=== PATIENT | male | born 1965 | race Caucasian/White ===

== ENCOUNTER 2023-07-25 14:56 | Outpatient (CLI) | payer MEDICARE, SELFPAY | END 2023-07-25 14:57 | disposition home or self-care (01) | LOC: KYNREF 15:08 | PROVIDERS: PCP Nurse Practitioner Family; Visit Provider Nurse Practitioner Family | DX: I10 Essential (primary) hypertension (principal); E11.69 Type 2 diabetes mellitus with other specified complication; Z79.4 Long term (current) use of insulin | CPT/HCPCS: 84132 ==

== ENCOUNTER 2024-03-19 10:10 | Outpatient (CLI) | payer MEDICARE, SELFPAY | END 2024-03-19 10:11 | disposition home or self-care (01) | PROVIDERS: PCP Nurse Practitioner Family; Visit Provider Nurse Practitioner Family | DX: I10 Essential (primary) hypertension (principal); Z13.220 Encounter for screening for lipoid disorders; Z12.5 Encounter for screening for malignant neoplasm of prostate; Z13.29 Encounter for screening for other suspected endocrine disorder; Z13.21 Encounter for screening for nutritional disorder | CPT/HCPCS: 80053; 80061; 82043; 82570; 82607; 84443; G0103 ==

== ENCOUNTER 2025-01-01 13:51 | Outpatient (CLI) | payer MEDICARE, SELFPAY ==
--- NOTE | 2025-01-08 08:22 | W.PM.SLEEP ---
Sleep Study Details Details Interpreting Provider: Marley Date of Sleep Study: 01/01/25 Sleep Study Details: STUDY TYPE:? Home unattended ? BMI:? 38.62 ORDERING PROVIDER:? Marley INDICATION:? Concern for sleep apnea ? SLEEP SUMMARY:? 418 minutes monitored RESPIRATORY SUMMARY:? AHI 43.5 Low oxygen 72 24% of study oxygen less than 90% Snoring 89% PERIODIC LIMB MOVEMENTS OF SLEEP:? Not recorded CARDIAC:? Range 40-113, mean 92.9 beats per minute IMPRESSION: Severe obstructive sleep apnea with significant hypo oxygenation during almost a 4th of the study. Bradycardia and tachycardia noted RECOMMENDATION: Treatment options include CPAP either AutoSet her in-lab titration. Once effective therapy is established an overnight oximetry should be performed. Further cardiac evaluation may also be indicated.
== END 2025-01-01 13:52 | disposition home or self-care (01) ==
LOC: SLEEP 13:52
PROVIDERS: PCP Nurse Practitioner Family; Visit Provider Otolaryngology
DX: G47.33 Obstructive sleep apnea (adult) (pediatric) (principal); R00.1 Bradycardia, unspecified
CPT/HCPCS: 95806

== ENCOUNTER 2025-01-21 13:06 | Outpatient (CLI) | payer MEDICARE, SELFPAY | END 2025-01-21 13:07 | disposition home or self-care (01) | PROVIDERS: PCP Nurse Practitioner Family; Visit Provider Nurse Practitioner Family | DX: R06.00 Dyspnea, unspecified (principal); R07.9 Chest pain, unspecified | CPT/HCPCS: 80053; 83880; 84484; 85025 ==

== ENCOUNTER 2025-02-04 13:08 | Outpatient (CLI) | payer MEDICARE, SELFPAY | END 2025-02-04 13:09 | disposition home or self-care (01) | PROVIDERS: PCP Nurse Practitioner Family; Visit Provider Nurse Practitioner Family | DX: R06.00 Dyspnea, unspecified (principal); R07.9 Chest pain, unspecified | CPT/HCPCS: 83880; 84484 ==

== ENCOUNTER 2025-02-13 12:49 | Outpatient (CLI) | payer MEDICARE, SELFPAY ==
--- NOTE | 2025-02-13 14:00 | CRLHL7_ITS ---
For Patients: As a result of the Cures Act, medical imaging exams and procedure reports are released immediately into your electronic medical record. You may view this report before your referring provider. If you have questions, please contact your health care provider. INDICATION: Lung cancer screening. History of smoking. High risk patient with greater than 40 pack-year smoking history. TECHNIQUE: Low-dose lung cancer screening non-contrast CT chest. Dose reduction techniques were used. COMPARISON: None. FINDINGS: NODULES: None. LUNGS AND PLEURA: Mild emphysema. MEDIASTINUM: No adenopathy. CORONARY ARTERY CALCIFICATION: Present. LIMITED UPPER ABDOMEN: Gallbladder distended likely due to NPO status. MUSCULOSKELETAL: Discogenic spurring. IMPRESSION: Negative for lung cancer screening purposes. LUNG-RADS CATEGORY: 1: Negative. RADIOLOGIST RECOMMENDATION: Continue annual screening with low-dose CT chest in 12 months. Please note that all CT scans at this facility use dose modulation, iterative reconstruction, and/or weight-based dosing when appropriate to reduce radiation dose to as low as reasonably achievable. Dictated by Jovany Ovalles MD @ 02/14/2025 11:02:23 AM (Electronically Signed)
== END 2025-02-13 12:50 | disposition home or self-care (01) ==
LOC: RAD 12:50
PROVIDERS: PCP Nurse Practitioner Family; Visit Provider Nurse Practitioner Family
DX: Z12.2 Encounter for screening for malignant neoplasm of respiratory organs (principal); Z87.891 Personal history of nicotine dependence; R00.0 Tachycardia, unspecified; I34.0 Nonrheumatic mitral (valve) insufficiency; I07.1 Rheumatic tricuspid insufficiency
CPT/HCPCS: 71271; 93306

== ENCOUNTER 2025-03-05 10:57 | Outpatient (CLI) | payer MEDICARE, SELFPAY ==
--- NOTE | 2025-03-05 11:15 | CRLHL7_ITS ---
For Patients: As a result of the 21st Century Cures Act, medical imaging exams and procedure reports are released immediately into your electronic medical record. You may view this report before your referring provider. If you have questions, please contact your health care provider. INDICATION: Difficulty swallowing TECHNIQUE: Modified barium swallow. Fluoroscopic time 1 minute 30 seconds. FINDINGS/IMPRESSION: The tongue is enlarged. Normal epiglottic motion. No penetration or aspiration. No obstruction. Decreased clearance of contrast from the oral cavity. Dictated by Jovany Ovalles MD @ 03/05/2025 1:54:18 PM (Electronically Signed)
--- NOTE | 2025-03-05 14:19 | SLP.MBS ---
BEEF GRADER Modified Barium Swallow BEEF GRADER Modified Barium Swallow Eval Start: 03/05/25 13:49 Text: Status: Active Freq: Protocol: Document 03/05/25 13:49 DEENA (Rec: 03/05/25 14:00 DEENA [id number]) E-signed By RHIANNA Khan Modified Barium Swallow Evaluation Evaluation Reason for Referral To further assess the pharyngeal phase of the swallow. Medical Diagnosis CVA, angioedema, dysarthria and dysphagia Treatment Diagnosis Oral dysphagia Date of Order 02/18/25 Type of Referral Evaluation Onset of Patient's 09/21/24 Problem Pertinent Medical PMH includes CVA x3 with upper and lower extremity History weakness (uses can to walk), FELICITA, vertigo, chronic pain , HTN, anxiety and depression, DMII, esophagitis and angioedema from reaction to Lisinopril. Hearing Status WNL Vision Status Glasses Subjective/Pain Jose De Jesus feels like his tongue is too big and has trouble Comment moving food around in his mouth. He coughs/chokes if he takes too big of a drink and tends to eat softer food items. Assessment/ Jose De Jesus is a 59-year-old male with history of CVA x3 and Impressions angioedema with impaired oral phase of the swallow. A vide swallow study was completed per provider orders to further assess the pharyngeal phase of the swallow. Under fluoroscopy, patient presents with overall moderate oral dysphagia. Oral phase deficits include reduced lingual ROM, tone and coordination causing poor bolus control, delayed and incoordinated A/P transit and reduced BOT retraction. Once the swallow was triggered, the pharyngeal phase of the swallow remains intact with no penetration or aspiration. Goals/Functional Jose De Jesus will verbalize understanding of today's results Outcomes and recommendations. Goal met today. Mod Barium Swallow-Lat View Textures Lateral View Food Thin: IDDSI Level 0,Pureed,Regular Presentation Oral Phase Labial Closure Moderate Impairment Bolus Formation Moderate Impairment under Tongue Mastication Rotary No Impairment (WFL) Chew A/P Lingual Moderate Impairment Propulsion Spills A/P Lingual Moderate Impairment Propulsion Delay Lingual Movement Moderate Impairment Residue Clearing No Impairment (WFL) Pharyngeal Phase Swallow Response No Impairment (WFL) Delay Base of Tongue No Impairment (WFL) Epiglottic Coverage No Impairment (WFL) Laryngeal Elevation No Impairment (WFL) Vallecular Retention No Impairment (WFL) Clearing Pharyn. Wall Residue No Impairment (WFL) Clearing Piriform Sinus No Impairment (WFL) Retention Mod Barium Swallow Impressions Summary and Impressions Oral Phase Moderate Impairment Impression Oral Phase Summary Poor bolus control, delayed and incoordinated A/P movement. Large tongue with reduced tone, ROM and coordination. Pharyngeal Phase No Impairment (WFL) Impression Pharyngeal Phase No penetration or aspiration. Summary Barium Swallow Recommendations Diet Dietary Regular with thin liquids, patient self-selecting Recommendations softer food items with added moisture. Comments Treatment/Strategies Treatment Oral Motor Exercises,Base of Tongue Exercises,Compens. Recommendation Strategy Educat. Treatment Patient is currently participating in outpatient speech Recommendation therapy. Comments Strategy/Precaution Sitting Upright (90 deg),No Straw,Small Bites and Sips Recommend Modified Barium Swallow Education Education Topics Teaching Recipient Patient Teaching Methods Verbal Response to Teaching Verbalize Understanding Therapist Signature/ Reza Awad MS [facility]-BEEF GRADER #[id number] License Number Speech/Language Pathology Billing Units Billing Units Eval Swallow Motion 1 Fluoro
== END 2025-03-05 10:58 | disposition home or self-care (01) ==
LOC: RAD 10:58
PROVIDERS: PCP Nurse Practitioner Family; Visit Provider Nurse Practitioner Family
DX: R13.10 Dysphagia, unspecified (principal)
CPT/HCPCS: 74230; 92611

== ENCOUNTER 2025-03-31 12:30 | Outpatient (RCR) | payer MEDICARE, SELFPAY ==
--- NOTE | 2025-01-27 14:53 | SLP.EVAL ---
COMPUTER APPLICATIONS INSTRUCTOR Cristel Fam Start: 01/27/25 12:11 Freq: Status: Active Protocol: Document 01/27/25 12:11 DEENA (Rec: 01/27/25 14:28 DEENA [id number]) E-signed By Reza Awad, COMPUTER APPLICATIONS INSTRUCTOR COMPUTER APPLICATIONS INSTRUCTOR System Review History & Reason For Referral Type of Speech Evaluation Dysphagia Evaluation Rehabilitation Order Evaluation and Treat Date of Order 01/21/25 Reason for Referral Changes in speech and swallowing due to angioedema. Onset Date Of Patient's Problem 09/21/24 Medical Diagnosis Angioedema. Personal h/o other specified conditions Z87.898 Treatment Diagnosis Dysphagia, dysarthria. Pertinent Medical History PMH includes x3 CVA (2 right and 1 left) with upper and lower extremity weakness (uses cane to walk), FELICITA, vertigo, chronic pain, HTN, anxiety and depression, DMII, agoraphobia , esophagitis. Patient was hospitalized at [facility] from 09/21/24 to 09/28/24 when he had an allergic reaction to Lisinopril. He had a few sessions with speech therapy at [place] but declined further speech therapy until now. He also had history of home care PT/OT/ST after his first stroke. Medications Reviewed Complication/Precautions/ Fall risk Contraindication Comments Aspiration precautions Pain Pain Intensity 0 Hearing Information Hearing Status WNL Vision Information Vision Status Glasses Patient Orientation Orientation & Mental Status A&Ox4 COMPUTER APPLICATIONS INSTRUCTOR Initial Assessment/POC Subjective Information Subjective/Pain Comment Patient feels like he sounds drunk when he talks. He reports choking with liquids. Feels that the left side of his tongue is still swollen. Assessment & Impression Rehabilitation Potential Comments Good rehab candidate based on level of prior functioning and patient is motivated to improve. Assessment/Impression ASSESSMENT Oral [facility] Cranial Nerve Exam Oral cavity Oral hygiene: Patient reports brushing his mouth once per day, in the morning, and using mouth wash. Dentition: edentulous for about 8 years. Too expensive to get dentures. Baseline diet: Regular with thin; self-selecting softer food items CN VII Facial Facial symmetry: mild droop on the left nasal fold and upper lip. Eyebrow ROM: reduced bilaterally (difficult to coordinate movement) Eyelid Closure: WNL Labial Structure and Function: weakness on the left with protrusion, retraction and lip seal Labial ROM: reduced coordination with alternating protrusion and retraction with mildly reduced ROM on the left Labial Strength: mildly reduced on left CN V Trigeminal Sensation: hypersensitive on the left upper and lower eyelids, upper lip and lower lip. Mandibular symmetry: WNL Jaw Clench: WNL Mandibular ROM: limited lateral movement of the jaw. Mandibular Strength: WNL CN XII Hypoglossal Tongue: larger on the left lateral side; reduced tone Lingual Structure and Function : protrusion and retraction WNL Lingual ROM: lateralization reduced in cheek but WNL for lateralization outside of mouth; elevation and lower WNL . Lingual Strength: protrusion WNL; lateral strength moderately reduced bilaterally . CN IX Glossopharyngeal & CN X Vagus Soft Palate/Velum: difficult to view due to size of tongue Soft Palate Structure and Function: unable to view Trials of thin via cup were administered. Thin: Patient was given 2 ounces of water via cup. Oral phase-Adequate acceptance and oral containment with reduced oral control and suspected premature pharyngeal entry. Pharyngeal phase- Timely swallow with adequate hyolaryngeal elevation. Overt s/sx of aspiration on 2/5 trials. Smaller bolus size helpful. Chin tuck not helpful due to poor bolus control which made A/P transit difficult in the chin down position. IMPRESSIONS Jose De Jesus is a 59-year-old male with history of multiple CVAs and angioedema from a reaction to Lisinopril. A thorough cranial nerve exam and clinical swallow evaluation was completed per provider orders. Patient presents with a mild oropharyngeal dysphagia and mild dysarthria. Cranial nerve/oral mech exam revealed labial and lingual weakness and reduced ROM on the left; hypersensitivity with sensation testing with patient flinching and feeling a pain- like sensation on upper and lower eyelids and upper and lower lip on the left. Oral phase of the swallow marked by poor bolus control and premature pharyngeal entry. Pharyngeal phase of the swallow marked by overt s/sx of aspiration with thin liquids. Jose De Jesus's speech is characterized by glottal chaudhary voice and imprecise articulation. He is ~90% intelligible at the conversational level but feels like he sounds drunk and that it's hard for people to understand him. Recommend a Regular diet with thin liquids , with patient self-selecting softer food items due to being edentulous. Safe swallow strategies include upright for all po and remain upright 30 minutes after meals, small single sips by cup (no straw), small bites at a slow rate of intake. Recommend speech therapy 1x/week for 10 weeks to address dysphagia and dysarthria. Patient is in agreement with this plan. Functional Limitations & Outcome/Goals Primary Functional Limitations Reduced intelligibility of speech; aspiration risk with thin liquids. Goals/Functional Outcomes Client Goal: To be able to talk again so that people can understand me. Senior Care Speech Goal: Jose De Jesus will produce?spontaneous conversation?while using clear speech strategies with appropriate supports 90% of the time to be understood in his daily environment as measured by patient report and improve score on the CETI. Auto Collision Repair Instructor Swallowing Goal: Jose De Jesus will safely and efficiently tolerate the least restrictive diet without signs or symptoms of aspiration and will rate his swallowing as improved, measured by an improved score on the EAT-10 (baseline score of 19). Short term goals to be met in 8 weeks: -Jose De Jesus will verbalize understanding of today's results and recommendations. -Jose De Jesus will independently complete lingual and labial strength, ROM and coordination exercises as outlined by COMPUTER APPLICATIONS INSTRUCTOR in HEP. -Jose De Jesus will tolerate soft solids and thin liquids with independent use of strategies with reduced overt s/s of aspiration to improve safety of swallow. -Jose De Jesus will read phrases, sentences and paragraphs with clear speech, yielding improved vocal quality, loudness, articulatory precision and endurance with minimal assistance for strategies. -Jose De Jesus will generalize clear speech to cognitive-linguistic exercises and conversational speech with improved vocal quality, loudness, articulatory precision and endurance with minimal assistance for strategies. Intervention Plan & Frequency Intervention Plan Evaluation Education Oral motor exercise program Clear Speech protocol Discharge Plan Patient Will be Discharged from Therapy Completion of LTG(s) Therapist Signature & License # I Certify That Therapy Services Provided, Therapy Plan Established, Therapy Plan Reviewed Therapist Signature & License Number Reza Awad [facility]-COMPUTER APPLICATIONS INSTRUCTOR # [id number] Certification Date Date of First Visit for Therapy 01/27/25 Date of Last Visit to Physician 01/21/25 Clinic Certification # #[id number] Recertification Due Date 04/11/25 Physician Signature Signature of Physician Indicates Treatment Plan,Certification Plan,Medically Needed Services Physician Signature & Date Required Please Sign/Date Here Dysphagia Education Topics Education Topics Teaching Recipient Patient Teaching Methods Verbal,Written,Demonstration Speech/Language Pathology Billing Units Billing Units Eval Swallow Function 1
--- NOTE | 2025-03-31 15:00 | SLP.DPN ---
RUBBER BOOTS AND SHOES REPAIRER Daily Progress Note RUBBER BOOTS AND SHOES REPAIRER Daily Progress Note Start: 01/27/25 14:29 Freq: Status: Active Protocol: Document 03/31/25 12:30 DEENA (Rec: 03/31/25 13:27 DEENA [id number]) E-signed By Reza Awad, RUBBER BOOTS AND SHOES REPAIRER RUBBER BOOTS AND SHOES REPAIRER Daily Progress Note Subjective Note Type Daily Note,Discharge Note Visit Number 7 Subjective/Pain Jose De Jesus endorses doing better with his voice and hearing Comments when he is speaking in glottal chaudhary and projecting his voice to reduce glottal chaudhary. He feels satisfied with the progress he has made in therapy and feels he has the tools he needs to continue to improve and he plans to continue with his HEP at home. Pain Since Last None Visit Patient and Insurance Information Insurance Name Medicare B Daily Treatment Information Interventions Completed EAT-10 with his score improving from a 19 Provided Today down to 9 (3 or greater indicates dysphagia). He has been more consistent with taking small sips which reduces aspiration. CETI score improved from a 20 up to a 27 (32 is max score). Now his speech concern is speaking in glottal chaudhary so completed the Voice Handicap Index (VHI-10) with a score of 9. A score of 11 or less is generally considered normal. Education on HEP and ways to improve monitoring of voice/glottal chaudhary and structured speech tasks to complete daily. Total Treatment Time 60 (Minutes) Query Text:Eval and Treatment total time Goals/Functional Outcomes Goals/Functional Client Goal: To be able to talk again so that people Outcomes can understand me. Jail Speech Goal: Jose De Jesus will produce?spontaneous conversation?while using clear speech strategies independently or with appropriate supports 90% of the time to be understood in his daily environment as measured by patient report and improve score on the CETI (baseline=20). Goal met. CETI score increased to 27. Jail Swallowing Goal: Jose De Jesus will safely and efficiently tolerate the least restrictive diet without signs or symptoms of aspiration and will rate his swallowing as improved, measured by an improved score on the EAT-10 (baseline score of 19). Goal met. EAT-10 improved to 9. Short term goals to be met in 8 weeks: STG 1: Jose De Jesus will independently complete lingual and labial strength, ROM and coordination exercises as outlined by RUBBER BOOTS AND SHOES REPAIRER in HEP. Goal met. STG 2: Jose De Jesus will tolerate soft solids and thin liquids with independent use of strategies with reduced overt s /s of aspiration to improve safety and efficiency of the swallow. Goal met. STG 3: Jose De Jesus will read phrases, sentences and paragraphs with clear speech, yielding improved vocal quality, loudness, articulatory precision and endurance with minimal assistance for strategies. Goal met. STG 4: Jose De Jesus will generalize clear speech to cognitive- linguistic exercises and conversational speech with improved vocal quality, loudness, articulatory precision and endurance with minimal assistance for strategies. Goal met. Daily Assessment/POC Assessment Jose De Jesus came for outpatient speech therapy following angioedema with complaints of an enlarged tongue that was negatively impacting his speech and swallowing ability. He was seen for an initial evaluation, a modified barium swallow study and has been seen for a total of 7 treatment sessions. 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 He has been very consistent with his HEP and has significantly increased his oral motor strength, ROM and tone. He is tolerating a regular diet with thin liquids with less reported aspiration and is independent with his safe swallow strategies. His speech is more clear with his increased oral motor tone but he still tends to speak in glottal chaudhary but that is improving as well and his self- monitoring skills help him correct and use strategies when he falls into talking in glottal chaudhary. Home Program Good Compliance Information Teaching Methods Verbal,Written Daily Plan of Care Discharge Daily Plan of Care Continue with HEP for oral motor strength/ROM and voice Comments exercises. Treating Therapist's Reza Awad MS CCC-RUBBER BOOTS AND SHOES REPAIRER #[id number] Name & License Number Speech/Language Pathology Billing Units Billing Units Speech/Hearing 1 Therapy Indiv
== END 2025-03-31 18:17 | disposition home or self-care (01) ==
PROVIDERS: PCP Nurse Practitioner Family; Visit Provider Nurse Practitioner Family
DX: T78.3XXD Angioneurotic edema, subsequent encounter (principal); Z87.898 Personal history of other specified conditions; I69.322 Dysarthria following cerebral infarction; I69.391 Dysphagia following cerebral infarction; Z51.89 Encounter for other specified aftercare
CPT/HCPCS: 92507; 92526; 92610; 92611

== ENCOUNTER 2025-05-06 13:48 | Outpatient (CLI) | payer MEDICARE, SELFPAY | END 2025-05-06 13:49 | disposition home or self-care (01) | PROVIDERS: PCP Nurse Practitioner Family; Visit Provider Nurse Practitioner Family | DX: I10 Essential (primary) hypertension (principal); E83.42 Hypomagnesemia; E11.9 Type 2 diabetes mellitus without complications; G89.29 Other chronic pain; Z79.4 Long term (current) use of insulin; Z12.5 Encounter for screening for malignant neoplasm of prostate | CPT/HCPCS: 80053; 80061; 82607; 84443; G0103 ==

== ENCOUNTER 2025-07-24 21:49 | Emergency (ER) | payer MEDICARE, SELFPAY ==
--- OUTSIDE RECORDS SUMMARY | 2022-07-01 00:48 | XMS_ITS | Continuity of Care Document ---
Author Organization [facility] Address [address] [address] [place] [address] Phone Care Team Providers Care Desktop Support Manager Name Role Phone Mar CASTILLO, Stock Unavailable Unavailable Allergies, Adverse Reactions, Alerts Substance Reaction Status Criticality Yniunqx-CGU-BbF Reductase Inhibitors Acti ve No Information Medications [...] Diagnoses Date Provider Providers Copied on Encounter [facility], [address] [address], [place], [place], [address], tel:[phone] [facility] No Information 2 Mar CASTILLO [facility]. [address] [place] [address], [id number], [place]. tel:[phone] [facility], [address] [address], [place], [place], [address], tel:[phone] [facility] GI Symptoms or Concerns (chief complaint) Diaphragmatic hernia without obstruction or gangrenePerso nal history of other diseases of the digestive systemDiaphra gmatic hernia without obstruction or gangrene 2 Mar Stock. [address] [place] [address], [id number], [place]. tel:[phone] Referring Provider: Referral Self, USE FOR SELF REFERRALS. [facility], [address] [address], [place], [place], [address], [place] tel:[phone] [facility] No Information 2 Mar Katahim. [address] [facility], [facility] [address], [place], [place], [address], [place]. tel:[phone] [facility], [address] [address], [place], [id number], [place] tel:[phone] [facility] No Information 2 Mar Stock. [address] [facility], [facility] [address], [place], [address], [place]. tel:[phone] [facility], [address] [address], [place], [address], [place] tel:[phone] [facility] EsophagitisHi atal herniaEsophag itis, unspecified without bleedingDiaph ragmatic hernia without obstruction or gangrene 2 Mar Stock. [address] [facility], [facility] [address], [place], [address], [place]. tel:[phone] Referring Provider: Referral Self, USE FOR SELF REFERRALS. [facility], [address] [address], [place], [address], [place] tel:[phone] [facility] No Information 2 Mar Stock. [address] [facility], [facility] [address], [place], [address], [place]. tel:[phone] Subsqt Hosp-da E&m Minr Compl [facility], [address] [address], [place], [address], [place] tel:[phone] [facility] No Information 0 2 No Information Init Hosp-da E&m Low Severity [facility], [address] [address], [place], [address], [place] tel:[phone] [facility] No Information 0 2 Shobha Walden. [address] [facility], [facility] [address], [place], [place], [address], [place]. tel:[phone] Referring Provider: Caron Craig MD, [address], [place], [address]. tel:[phone] Offic/outpt E&m New Mod-[facility] [address] [address], [place], [place], [id number], tel:[phone] [facility] GI Symptoms or Concerns (chief complaint) Bilious vomiting with nauseaDietary counseling and surveillanceC olon cancer screening 9 Paige Aguirre. [address] [facility], [facility] [address], [place], [place], [address], [place]. tel:[phone] Family History Family Member Type Diagnosis Age [...] libertarian ID Authoriza tion(s) Medicare NGS MB [id number] Social History Type Description Quantity Date Captured [...]
--- OUTSIDE RECORDS SUMMARY | 2022-07-01 00:48 | XMS_ITS | Continuity of Care Document ---
Author Organization [facility] Address [address] [address] [place] [address] Phone Care Team Providers Care Electric Razor Mechanic Name Role Phone Mar CASTILLO, Stock Unavailable Unavailable Allergies, Adverse Reactions, Alerts Substance Reaction Status Criticality Lyvntkm-YHV-DcW Reductase Inhibitors Acti ve No Information Medications [...] Diagnoses Date Provider Providers Copied on Encounter [facility], [address] [address], [place], [place], [id number], tel:[phone] [facility] No Information 2 Mar CASTILLO [facility]. [address] [place] [address], [id number], [place]. tel:[phone] [facility], [address] [address], [place], [place], [address], tel:[phone] [facility] GI Symptoms or Concerns (chief complaint) Diaphragmatic hernia without obstruction or gangrenePerso nal history of other diseases of the digestive systemDiaphra gmatic hernia without obstruction or gangrene 2 Mar Stock. [address] [place] [address], [id number], [place]. tel:[phone] Referring Provider: Referral Self, USE FOR SELF REFERRALS. [facility], [address] [address], [place], [place], [address], [place] tel:[phone] [facility] No Information 2 Mar Katahim. [address] [facility], [facility] [address], [place], [place], [address], [place]. tel:[phone] [facility], [address] [address], [place], [address], [place] tel:[phone] [facility] No Information 2 Mar Stock. [address] [facility], [facility] [address], [place], [address], [place]. tel:[phone] [facility], [address] [address], [place], [address], [place] tel:[phone] [facility] EsophagitisHi atal herniaEsophag itis, unspecified without bleedingDiaph ragmatic hernia without obstruction or gangrene 2 Mar Stock. [address] [facility], [facility] [address], [place], [address], [place]. tel:[phone] Referring Provider: Referral Self, USE FOR SELF REFERRALS. [facility], [address] [address], [place], [address], [place] tel:[phone] [facility] No Information 2 Mar Stock. [address] [facility], [facility] [address], [place], [address], [place]. tel:[phone] Subsqt Hosp-da E&m Minr Compl [facility], [address] [address], [place], [id number], [place] tel:[phone] [facility] No Information 0 2 No Information Init Hosp-da E&m Low Severity [facility], [address] [address], [place], [address], [place] tel:[phone] [facility] No Information 0 2 Shobha Walden. [address] [facility], [facility] [address], [place], [place], [address], [place]. tel:[phone] Referring Provider: Caron Craig MD, [address], [place], [address]. tel:[phone] Offic/outpt E&m New Mod-[facility] [address] [address], [place], [place], [address], tel:[phone] [facility] GI Symptoms or Concerns (chief complaint) Bilious vomiting with nauseaDietary counseling and surveillanceC olon cancer screening 9 Paige Aguirre. [address] [facility], [facility] [address], [place], [place], [address], [place]. tel:[phone] Family History Family Member Type Diagnosis Age [...] Registry Payers Payer name Insurance type Covered alliance party ID Authoriza tion(s) Medicare NGS MB [id number] Social History Type Description Quantity Date Captured [...]
[2025-07-24] VITALS (11 sets, daily range): BP systolic 161–193; BP diastolic 89–122; PULSE 49–103; RESP 13–35; TEMP 36.6; O2SAT 91–95; BMI 42.4
--- OUTSIDE RECORDS SUMMARY | 2025-07-24 21:53 | XMS_ITS | Clinical Summary ---
Author Organization [facility] Address [address] [place] [address] Care Team Providers Care Metal Burnisher Name Role Phone [facility] [place] Unavailable Tanisha Angulo PA-C Primary Care Provider [phone] Allergies Active Allergy Reactions Criticality Noted Date Comments Tu Inhibitors Angioedema High 10/04/2024 Medications fluvoxaMINE (LUVOX) 100 mg tablet Take 300 mg by mouth once daily. Active QUEtiapine (SEROQUEL) 50 mg tablet Take 25-50 mg by mouth at bedtime if needed (sleep). Active meclizine (ANTIVERT) 25 mg tablet Take 25 mg by mouth 3 times daily if needed for Vertigo. Active blood sugar diagnostic stripIndications:DM (diabetes mellitus) type 2, uncontrolled, with ketoacidosis (HC) Test 3 times/day. Reason: High A1C 100 Each 11/26/19 22 3:02 PM MOVIE STUNT PERFORMER 022 Active Blood-Glucose MeterIndications:DM (diabetes mellitus) type 2, uncontrolled, with ketoacidosis (HC) Use as directed to test 3 times daily. 1 Each 11/26/19 22 3:02 PM MOVIE STUNT PERFORMER 022 Active lancetsIndications:DM (diabetes mellitus) type 2, uncontrolled, with ketoacidosis (HC) Dispense item covered by pt ins. E11.65 NIDDM type II, uncontrolled - Test 3 times/day. Reason: High A1C 100 Each 11/26/19 22 3:02 PM MOVIE STUNT PERFORMER 022 Active acetaminophen (TYLENOL) 325 mg tabletIndications:Pain Take 2 Tablets (650 mg) by mouth every 4 hours if needed for Pain or Temp > (Specify) (Temp >100.4 F (38 C)). Max acetaminophen dose: 4000mg in 24 hrs. 0 Active pantoprazole (PROTONIX) 40 mg delayed-release tabletIndications:Esoph agitis Take 1 Tablet (40 mg) by mouth 2 times daily before meals. 60 Tablet 11/26/19 22 3:02 PM MOVIE STUNT PERFORMER Active magnesium oxide (MAG-OX 400) 400 mg tabletIndications:Hypom agnesemia Take 1 Tablet (400 mg) by mouth 2 times daily for 4 days, then decrease to 1 tablet by mouth daily thereafter 30 Tablet 11/26/19 22 3:02 PM MOVIE STUNT PERFORMER Active ondansetron (ZOFRAN ODT) 4 mg disintegrating tabletIndications:Nause a and vomiting, unspecified vomiting type Place 1 to 2 Tablets (4-8 mg) on the tongue every 8 hours if needed for Nausea/Vomiting. 30 Tablet 11/26/19 22 3:02 PM MOVIE STUNT PERFORMER Active sucralfate (CARAFATE) 1 gram tabletIndications:Esoph agitis Take 1 Tablet (1 g) by mouth 4 times daily before meals and at bedtime. 120 Tablet 11/26/19 22 3:02 PM MOVIE STUNT PERFORMER Active glimepiride (AMARYL) 4 mg tabletIndications:DM (diabetes mellitus) type 2, uncontrolled, with ketoacidosis (HC) Take 1 Tablet (4 mg) by mouth once daily with a meal. 90 Tablet 3 11/26/19 22 3:02 PM MOVIE STUNT PERFORMER 022 Active insulin glargine, U-100, (Lantus Solostar U-100 Insulin) 100 unit/mL (3 mL) penIndications:DM (diabetes mellitus) type 2, uncontrolled, with ketoacidosis (HC) Inject 15 units subcutaneous at bedtime. 15 mL 3 11/26/19 22 3:02 PM MOVIE STUNT PERFORMER 022 Active metFORMIN (GLUCOPHAGE XR) 750 mg Extended-Release tabletIndications:DM (diabetes mellitus) type 2, uncontrolled, with ketoacidosis (HC) Take 1 Tablet (750 mg) by mouth once daily. 90 Tablet 3 11/26/19 3:02 PM MOVIE STUNT PERFORMER 022 Active Insulin [place], Disposable, (Lulu Pen Needle) 32 gauge x /32Indications:DM (diabetes mellitus) type 2, uncontrolled, with ketoacidosis (HC) For administering insulin at home. 150 Each 3 023 Active amLODIPine 5 mg tablet Take 1 Tablet (5 mg) by mouth once daily. 025 Active hydroCHLOROthiazide 25 mg tablet Take 1 Tablet (25 mg) by mouth once daily. 025 Active rosuvastatin 20 mg tabletIndications:Pure hypercholesterolemia Take 1 Tablet (20 mg) by mouth once daily. 90 Tablet 3 025 Active Active Problems Problem Noted Date Diagnosed Date Esophagitis 11/26/2021 Elevated lipase 11/26/2021 DUGLAS (acute kidney injury) 11/26/2021 Ketoacidosis 11/20/2021 DM (diabetes mellitus) type 2, uncontrolled, with ketoacidosis 11/20/2021 Agoraphobia 11/20/2021 History of stroke 11/20/2021 Nausea & vomiting 11/20/2021 HTN (hypertension) 11/20/2021 Social History Tobacco Use Types Packs/Day Years Used Date Smoking Tobacco: Never Assessed Sex and Gender Information Value Date Recorded Sex Assigned at Not on file Legal Sex Male 8:06 AM MOVIE STUNT PERFORMER Gender Identity Not on file Sexual Orientation Not on file Obstetrics History Last Filed Vital Signs Vital Sign Reading Time Taken Comments Blood Pressure 148/80 03/13/2025 2:08 PM CDT Pulse 90 03/13/2025 2:08 PM CDT Temperature 37.3 C (99.1 F) 11/25/2021 7:57 AM MOVIE STUNT PERFORMER Respiratory Rate 16 03/13/2025 2:08 PM CDT Oxygen Saturation 99% 11/25/2021 12:00 PM MOVIE STUNT PERFORMER Inhaled Oxygen Concentration - - Weight 100.2 kg (221 lb) 03/13/2025 2:08 PM CDT Height 172.7 cm (5' 8) 11/19/2021 9:00 PM MOVIE STUNT PERFORMER Body Mass Index 33.6 11/19/2021 9:00 PM MOVIE STUNT PERFORMER Plan of Treatment Health Maintenance Due Date Last Done Comments Tetanus booster 1976 Depression screening for age 12+ 1977 HIV for age 15-65 1980 BMI (ht and wt on same day) for age 18+ 1983 Hepatitis C screening for age 18-79 1983 Hepatitis B series for 19+ ( 1 of 3 - 19+ 3-dose series) 1984 Pneumococcal series for age 50+ (1 of 2 - PCV) 984 Colonoscopy through age 75 2010 Zoster (shingles) series for age 50+ (1 of 2) 07/31/20 15 Influenza Vaccine (#1) 2025 Lipids for age 45-75 11/21/2026 11/21/2021 RSV vaccine for adults or pr egnancy (1 - 1-dose 75+ series) 2040 Procedures Procedure Name Priority Date/Time Associated Diagnosis Comments LIPID PANEL DEIDRE 11/21/2021 7:02 AM MOVIE STUNT PERFORMER from Last 3 Months or Most Recently Relevant to Health Maintenance Results * LIPID PANEL (11/21/2021 7:02 AM MOVIE STUNT PERFORMER) CHOLESTEROL,TOTAL 155 100 - 199 mg/dL 11/21/2021 7:37 AM MOVIE STUNT PERFORMER [facility] TRIGLYCERIDES 135 <150 mg/dL 11/21/2021 7:37 AM MOVIE STUNT PERFORMER [facility] HDL CHOLESTEROL 45 >40 mg/dL 7:37 AM MOVIE STUNT PERFORMER [facility] NON-HDL CHOLESTEROL 110 <145 mg/dl 11/21/2021 7:37 AM MOVIE STUNT PERFORMER [facility] CHOL/HDL RATIO 3.44 <4.50 11/21/2021 7:37 AM MOVIE STUNT PERFORMER [facility] LDL CHOLESTEROL 83 <=130 mg/dL 11/21/2021 7:37 AM MOVIE STUNT PERFORMER [facility] VLDL CHOLESTEROL 27 <=30 mg/dL 11/21/2021 7:37 AM MOVIE STUNT PERFORMER [facility] PROVIDER ORDERED STATUS RANDOM 11/21/2021 7:37 AM MOVIE STUNT PERFORMER [facility] Blood BLOOD SPECIMEN / Unknown Non-Lab Venipuncture / Unknown 11/21/2021 7:02 AM MOVIE STUNT PERFORMER 11/21/2021 7:12 AM MOVIE STUNT PERFORMER us Becca Estrada MD CHEMISTRY Final Re sult [facility] [address] [place] [address], [place] from Last 3 Months or Most Recently Relevant to Health Maintenance Insurance MEDICARE PB ONLY Member Subscriber Plan / Payer ( fective 2018-Present) Name:Jose De Jesus Alonso Member ID:[id number] Relation to Subscriber:Self Name:Jose De Jesus Alonso Subscriber ID:[id number] Payer ID:Not on file Group ID:Not on file Type:Not on file Address: ATTN: CLAIMS [address] [place] [phone] MEDICARE PART A HB ONLY MEDICARE PART B HB ONLY MEDICARE PPS Advance Directives * Full Code (Latest Code Status on File) Date Activated Date Inactivated Comments 11/20/2021 9:28 AM 11/25/2021 8:23 PM Question Answer Comments Code Status Discussion: Reviewed Preferences * Full Code Date Activated Date Inactivated Comments 11/19/2021 9:39 PM 11/20/2021 9:28 AM Question Answer Comments Code Status Discussion: Unable to Assess Preferences, Provider to review later Care Teams Metal Burnisher Relationship Specialty Start Date End Date Tanisha Angulo PA-C [address] [place], [place] [address]JESSICA RENDON [id number] PCP - General Physician Billiard Table Repairer 11/26/21 [facility] [address], [place] [address] 11/26/21
--- OUTSIDE RECORDS SUMMARY | 2025-07-24 21:53 | XMS_ITS | Clinical Summary ---
Author Organization [facility] Address [address] [place] [address] Care Team Providers Care Incinerator Attendant Name Role Phone Elsewhere, Pcp Primary Care Provider Unavailabl e Source Comments Patient records contain information from all sites at [facility]. For routine questions regarding patient records, call [phone] during business hours, M-F 8:00 AM - 5:00 PM Central Time. Record requests for emergency care only can be directed to [phone] at any time.[facility] Allergies Active Allergy Reactions Criticality Noted Date Comments Lisinopril Angioedema High 09/21/2024 Simvastatin Other (see comments) Low 03/30/2021 Medications * This document contains information received from the source organization and may not represent a complete record from that organization. meclizine (Antivert) 25 mg tablet Take 25 mg by mouth 3 (three) times a day as needed. Active DULoxetine (Cymbalta) [address] capsule Take 120 mg by mouth daily. Active hydroCHLOROthia zide 12.5 mg tablet Take 1 tablet (12.5 mg total) by mouth daily. 30 tablet 5 Active metoprolol succinate (Toprol XL) 25 mg 24 hr tablet Take 0.5 tablets (12.5 mg total) by mouth daily. Do not crush or chew. 30 tablet 5 Active insulin aspart U-100 (NovoLOG Flexpen U-100 Insulin) 100 unit/mL (3 mL) pen Inject 15 Units under the skin 3 (three) times a day with meals. Hold if not eating. Dose may need adjustment. 30 mL 1 5 Active insulin glargine-yfgn (Semglee) 100 unit/mL (3 mL) pen Inject 48 Units under the skin every morning. Dose may need adjustment. 30 mL 1 5 Active pen needle, diabetic 32 gauge x 32 needle 4 Injection daily. Use as needed for insulin injection. 400 each 1 5 Active Active Problems Problem Noted Date Diagnosed Date Angioneurotic (Angioedema Acquired) Edema Initia l 09/22/2024 Stroke Cerebrovascular Accident Personal History 09/22/2024 Angioedema Personal History 09/22/2024 Stroke 11/26/2021 Ketoacidosis 11/26/2021 Abuse Tobacco Smoking 11/26/2021 Anxiety 11/26/2021 Depression 11/26/2021 Dyslipidemia 02/27/2019 Hypertension Essential Primary 02/27/2019 Stroke 02/27/2019 Diabetes Mellitus Type 2 01/10/2017 Overview (02/07/2017): Type 2 diabetes mellitus without complications Immunizations Immunization Administration Dates Next Due PPSV23 07/25/2018 SARS-COV-2 (COVID-19) - PFIZ ER (Discontinued)(12 years or older) 03/23/2021,03/02/2021 Tdap 07/25/2018,12/29/2006 Family History Medical History Relation Name Comments Coronary artery disease Brother Diabetes Brother Clotting/ bleeding disorder Father Cancer Mother Relation Name Status Comments Brother Father Mother Social History Tobacco Use Types Packs/Day Years Used Date Smoking Tobacco: Every Day [facility] Utilities Answer Date Recorded In the past 12 months has e [employer], gas, oil, or water [employer] threatened to shut off services in your home? No 09/24/2024 Humiliation, Afraid, Rape, and Kick questionnair e Answer Date Recorded Within the last year, have y ou been afraid of your partner or ex-partner? No 09/24/2024 Within the last year, have y ou been humiliated or emotionally abused in other ways by your partner or ex-partner? No Within the last year, have y ou been kicked, hit, slapped, or otherwise physically hurt by your partner or ex-partner? No 09/24/2024 Within the last year, have y ou been raped or forced to have any kind of sexual activity by your partner or ex-partner? No 09/24/2024 Hunger Vital Sign Answer Date Recorded Within the past 12 months, y ou worried that your food would run out before you got the money to buy more. Never true 09/24/19 25 Within the past 12 months, t he food you bought just didn't last and you didn't have money to get more. Never true 09/24/2024 PRAPARE - Transportation Answer Date Re corded In the past 12 months, has l ack of transportation kept you from medical appointments or from getting medications? No 03/2025 In the past 12 months, has l ack of transportation kept you from meetings, work, or from getting things needed for daily living? No 09/24/2024 Housing Stability Answer Date Recorded What is your living situation today? I have a [facility] place to live 09/24/2024 Sex and Gender Information Value Date Recorded Sex Assigned at Not on file Legal Sex Male 1:58 PM CDT Gender Identity Not on file Sexual Orientation Not on file Last Filed Vital Signs Vital Sign Reading Time Taken Comments Blood Pressure 152/87 09/28/2024 12:30 PM ATTENDANT HONOR BAR Pulse 96 09/28/2024 12:30 PM ATTENDANT HONOR BAR Temperature 37.1 C (98.8 F) 09/28/2024 12:30 PM ATTENDANT HONOR BAR Respiratory Rate 18 09/28/2024 12:30 PM ATTENDANT HONOR BAR Oxygen Saturation 96% 09/28/2024 12:30 PM ATTENDANT HONOR BAR Inhaled Oxygen Concentration - - Weight 114 kg (251 lb 1.7 oz) 09/24/2024 5:00 AM ATTENDANT HONOR BAR Height 174 cm (5' 8.5) 09/26/2024 10:43 AM ATTENDANT HONOR BAR Body Mass Index 37.62 09/24/2024 5:00 AM ATTENDANT HONOR BAR Plan of Treatment Health Maintenance Due Date Last Done Comments CT Colonography 1965 Cologuard 1965 Colonoscopy 1965 Colorectal Cancer Screening 1965 Diabetic Eye Exam 1965 FIT 1965 HIV Screening 1965 Hepatitis C Screening 1965 Office Visit for Blood Pressure Check / Re-check 1965 Tobacco Cessation counseling 1965 Urine Albumin 1965 Hepatitis B Vaccines (1 of 3 - 19+ 3-dose series) 1984 Zoster Vaccines (1 of 2) 2015 Diabetic Office Visit with Foot Exam 02/14/2018 02/14/2017 Pneumococcal vaccine (50+ years) (2 of 2 - PCV) 07/25/2019 07/25/2018 Diabetes Education 11/25/2021 02/14/2017 Lipid (Cholesterol) Screening 11/21/2022 11/21/2021, 01/10/2017 Depression Screening (Annual PHQ-2) 09/18/2024 Hemoglobin A1C 12/20/2024 09/21/2024, 03/0 12/2021, 01/10/2017 COVID-19 Vaccine ( season) 2025 07/25/2023, 06/21/2022, 02/01/2022, Additional history exists Influenza Vaccine (#1) 2025 07/25/2023, 2021 Creatinine Level (Kidney Function Test) 09/21/2025 09/21/2024, 11/24/2021, 11/23/2021, Additional history exists Potassium Level 09/21/2025 09/21/2024, 01/0 12/2024, 11/25/2021, Additional history exists Sodium Level 09/21/2025 09/21/2024, 01/0 12/2024, 11/24/2021, Additional history exists DTaP,Tdap,and Td Vaccines (3 - Td or Tdap) 07/25/2028 07/25/2018, 12/29/2006 IPV Vaccines Aged Out No longer eligi ble based on patient's age to complete this topic Procedures Procedure Name Priority Date/Time Associated Diagnosis Comments VBG & LYTES CG8+, POCT, B STAT 09/21/2024 7:51 PM ATTENDANT HONOR BAR BASIC METABOLIC PANEL, S/P STAT 09/21/2024 7:51 PM ATTENDANT HONOR BAR HEMOGLOBIN A1C, B Routine 09/21/2024 7:4 6 PM ATTENDANT HONOR BAR LIPID PANEL, S Routine 01/10/2017 10:55 AM CDT from Last 3 Months or Most Recently Relevant to Health Maintenance Results * (ABNORMAL) Venous Blood Gas and Electrolytes CG8+, POCT (09/21/2024 7:51 PM ATTENDANT HONOR BAR) [facility] Sample Site, POCT Venstick 09/21/2024 8:01 PM ATTENDANT HONOR BAR PCLX Comment: ----ADDITIONAL INFORMATION---- Performed at the Point of Care pH, Venous, POCT, B 7.34 7.32 - 7.43 09/21/2024 8:01 PM ATTENDANT HONOR BAR PCSM Comment: ----ADDITIONAL INFORMATION---- Performed at the Point of Care pCO2, Venous, POCT, B 57(H) 41 - 51 mm Hg 09/21/2024 8:01 PM ATTENDANT HONOR BAR PCSM Comment: ----ADDITIONAL INFORMATION---- Performed at the Point of Care pO2, Venous, POCT, B 23 Not Applicable mm Hg 09/21/2024 8:01 PM ATTENDANT HONOR BAR PCSM Comment: ----ADDITIONAL INFORMATION---- Performed at the Point of Care Base Excess, Venous, POCT, B 5 Not Applicable mmol/L 09/21/2024 8:01 PM ATTENDANT HONOR BAR PCSM Comment: ----ADDITIONAL INFORMATION---- Performed at the Point of Care HCO3, Venous, POCT, B 31 Not Applicable mmol/L 09/21/2024 8:01 PM ATTENDANT HONOR BAR PCSM Comment: ----ADDITIONAL INFORMATION---- Performed at the Point of Care Sodium, POCT, B 136 135 - 145 mmol/L 09/21/2024 8:01 PM ATTENDANT HONOR BAR PCLX Comment: ----ADDITIONAL INFORMATION---- Performed at the Point of Care Potassium, POCT, B 4.1 3.6 - 5.2 mmol/L 09/21/2024 8:01 PM ATTENDANT HONOR BAR PCLX Comment: ----ADDITIONAL INFORMATION---- Performed at the Point of Care Calcium, Ionized, POCT, B 5.10 4.65 - 5.30 mg/dL 09/21/2024 8:01 PM ATTENDANT HONOR BAR PCLX Comment: ----ADDITIONAL INFORMATION---- Performed at the Point of Care Glucose, POCT, B 347(H) 70 - 140 mg/dL 09/21/2024 8:01 PM ATTENDANT HONOR BAR PCLX Comment: ----ADDITIONAL INFORMATION---- Performed at the Point of Care Hematocrit, POCT, B 45.0 38.3 - 48.6 % 09/21/2024 8:01 PM ATTENDANT HONOR BAR PCLX Comment: ----ADDITIONAL INFORMATION---- Performed at the Point of Care Blood (Blood, Venous) 09/21/2024 7:51 PM ATTENDANT HONOR BAR 09/21/2024 7:51 PM ATTENDANT HONOR BAR Ashley Sanchez M.D., Ph.D. LAB POCT ORDERABLES - DEVICE Final Result POC [facility] [address] [place] [address], [facility] PCLX [facility] P[facility] [address] [place] [address] [facility] POC [address] [place] [address] * (ABNORMAL) Basic Metabolic Panel (09/21/2024 7:51 PM ATTENDANT HONOR BAR) Potassium, P 4.1 3.6 - 5.2 mmol/L 09/21/2024 8:12 PM ATTENDANT HONOR BAR STMA Sodium, P 136 135 - 145 mmol/L 09/21/2024 8:12 PM ATTENDANT HONOR BAR STMA Chloride, P 98 98 - 107 mmol/L 09/21/2024 8:12 PM ATTENDANT HONOR BAR STMA Bicarbonate, P 27 22 - 29 mmol/L 09/21/2024 8:12 PM ATTENDANT HONOR BAR STMA Anion Gap, P 11 7 - 15 09/21/2024 8:12 PM ATTENDANT HONOR BAR STMA BUN (Blood Urea Nitrogen), P 23 8 - 24 mg/dL 09/21/2024 8:12 PM ATTENDANT HONOR BAR STMA Creatinine 0.88 0.74 - 1.35 mg/dL 09/21/2024 8:12 PM ATTENDANT HONOR BAR STMA Estimated GFR (eGFR) >90 >=60 mL/min/BSA 09/21/2024 8:12 PM ATTENDANT HONOR BAR STMA Comment: Estimated GFR calculated using the 2020 CKD_EPI creatinine equation. Calcium, Total, P 9.7 8.6 - 10.0 mg/dL 09/21/2024 8:12 PM ATTENDANT HONOR BAR STMA Glucose, P 370(H) 70 - 140 mg/dL 09/21/2024 8:12 PM ATTENDANT HONOR BAR STMA Blood (Blood, Venous) 09/21/2024 7:51 PM ATTENDANT HONOR BAR 09/21/2024 7:56 PM ATTENDANT HONOR BAR us Ashley Sanchez M.D., Ph.D. LAB BLOOD ADD-ON Fi nal Result Performing Organization Address [facility] de Phone Number [facility] [address] [place] [address], [facility] STMA [facility] [address] [place] [address] * (ABNORMAL) Hemoglobin A1c (09/21/2024 7:46 PM ATTENDANT HONOR BAR) Hemoglobin A1c, B 10.4(H) 4.0 - 5.6 % 09/22/2024 7:14 AM ATTENDANT HONOR BAR DTL Comment: Hemoglobin A1c values greater than or equal to 6.5 percent are diagnostic for diabetes mellitus. Diagnosis should be confirmed by repeat testing. In diabetic patients, HbA1c goals should be discussed with healthcare provider. Blood (Blood, Venous) 09/21/2024 7:46 PM ATTENDANT HONOR BAR 09/22/2024 6:52 AM ATTENDANT HONOR BAR us Marlo Velázquez M.D. LAB BLOOD ADD-ON Final Resul t Performing Organization Address [facility] Co de Phone Number [facility] [address] [place] [address], [place] DTL [facility] [address] [place] [address] * (ABNORMAL) Lipid Panel (01/10/2017 10:55 AM CDT) Cholesterol, Total 250(H) <=199 MGDL POWERCHART Comment: 2014 National Lipid Association recommendations for Total Cholesterol in adults ages 18 and up: Desirable <200 mg/dL Borderline high 200-239 mg/dL High 240 mg/dL 2014 National Lipid Association recommendations for Total Cholesterol in children ages 2 to 17. Acceptable <170 mg/dL Borderline High 170-199 mg/dL High 200 mg/dL HX HDL 45 >=40 MGDL POWERCHART Comment: 2014 National Lipid Association recommendations for HDL-C in adults ages 18 and up: Low <40 mg/dL (Men) Low <50 mg/dL (Women) 2014 National Lipid Association recommendations for HDL-C in children ages 2 to 17. Low <40 mg/dL Borderline Low 40-45 mg/dL Acceptable >45 mg/dL Triglycerides 169(H) <=149 MGDL POWERCHART Comment: 2014 National Lipid Association recommendations for Triglycerides in adults ages 18 and up: Normal <150 mg/dL Borderline High 150-199 mg/dL High 200-499 mg/dL Very High 500 mg/dL 2014 National Lipid Association recommendations for Triglycerides in children ages 2 to 9. Acceptable <75 mg/dL Borderline High 75-99 mg/dL High 100 mg/dL 2014 National Lipid Association recommendations for Triglycerides in children ages 10 to 17. Acceptable <90 mg/dL Borderline High 90-129 mg/dL High 130 mg/dL Trigs >400mg/dL: Triglycerides >400 mg/dL. Calculated LDL cholesterol is not valid. Non-HDL cholesterol may be used for risk assessment when triglycerides are >400mg/dL. Calculated LDL 171(H) <=129 MGDL POWERCHART Comment: 2014 National Lipid Association recommendations for LDL-C in adults ages 18 and up: Desirable <100 mg/dL Above desirable 100-129 mg/dL Borderline high 130-159 mg/dL High 160-189 mg/dL Very High 190 mg/dL 2014 National Lipid Association recommendations for LDL-C in children ages 2 to 17. Acceptable <110 mg/dL Borderline High 110-129mg/dL High 130 mg/dL LDL-C >190mg/dL: The markedly elevated LDL level is suggestive of a genetic condition such as familial hypercholesterolemia(FH) or familial defective apolipoprotein B-100 (FDB). Molecular genetic testing for FH and FDB is available through [facility]: FH/ADH Genetic Reflex Panel (test ADHP). Acquired (non-genetic) causes of markedly increased LDL cholesterol include cholestatic liver disease due to the presence of LpX. If a genetic form of hypercholesterolemia is suspected, family studies including biochemical testing for lipids (total cholesterol,triglycerides, LDL cholesterol and HDL cholesterol) are recommended. Please contact the laboratory at or the on-line test catalog at [facility] for information about how to order these tests or to speak with a genetic counselor. Further interpretation would require clinical information. Total Cholesterol/HDL Ratio 6.00 POWERCHART HXLDL/HDL 4 POWERCHART Blood 01/10/2017 10:5 5 AM CDT Antonieta Urbina APRN C.N.P., M.S.N. LAB BLOOD ADD-ON Final Result POWERCHART from Last 3 Months or Most Recently Relevant to Health Maintenance Insurance MEDICARE Advance Directives For more information, please contact: [phone] Documents on File Type Date Recorded Patient Registered Dental Assistant Expl anation Advance Directives 09/12/2022 12:05 PM GERTRUDE DY/ORGAN DONATION * Full Code (Latest Code Status on File) Date Activated Date Inactivated Comments 09/22/2024 4:50 AM 09/28/2024 2:53 PM Question Answer Comments Full Code: Not Discussed Due to: Patient not available Intubated Care Teams Incinerator Attendant Relationship Specialty Start Date End Date Elsewhere, Pcp PCP - General Family Medicine 08/14/19
--- OUTSIDE RECORDS SUMMARY | 2025-07-24 21:53 | XMS_ITS | Clinical Summary ---
Author Organization [facility] Address [address] [address] Care Team Providers Care Forestry Tree Pruner Name Role Phone Rahat Rubio MD Primary Care Provider [phone] Source Comments You are receiving this document as you are listed as the primary care provider,follow-up provider, or the patient has been referred to you for consultation.This is in compliance with the Medicare and[facility] EHR Incentive Program,which states Providers who transition their patient to another setting of careor provider of care or refers their patient to another provider of care shouldprovide summary care record for each transition of care or referral. [facility] Allergies No known active allergies Medications aspirin 81 MG tablet Take 81 mg by mouth daily. Active metFORMIN (GLUCOPHAGE) 1000 MG tablet Take 1,000 mg by mouth two times a day with meals. Active atorvastatin (LIPITOR) 40 MG tablet Take 40 mg by mouth daily. Active omeprazole (PRILOSEC) 20 MG capsule Take 20 mg by mouth two times a day. Take 1 hour before a meal. Active empagliflozin (JARDIANCE) 10 MG tabletIndications :Uncontrolled diabetes mellitus type 2 without complications Take 1 Tablet by mouth daily. 30 Tablet 6 05/29/20 Active Additional Information Patient not taking.Reported on 08/06/2019 TRESIBA FLEXTOUCH 100 UNIT/ML SOPN Inject 60 Units subcutaneously daily. 45 mL 1 08/06/20 Active Active Problems Problem Noted Date Diagnosed Date Uncontrolled diabetes mellitus type 2 without co mplications 02/27/2019 Essential hypertension 02/27/2019 Dyslipidemia 02/27/2019 Cerebrovascular accident (CVA) 02/27/2019 Social History Tobacco Use Types Packs/Day Years Used Date Smoking Tobacco: Some Days Smokeless Tobacco: Former Sex and Gender Information Value Date Recorded Sex Assigned at Not on file Legal Sex Male 11:09 AM CDT Gender Identity Not on file Sexual Orientation Not on file Last Filed Vital Signs Vital Sign Reading Time Taken Comments Blood Pressure 132/88 08/06/2019 4:19 PM PLAYGROUND ATTENDANT Pulse 104 08/06/2019 4:19 PM PLAYGROUND ATTENDANT Temperature - - Respiratory Rate - - Oxygen Saturation - - Inhaled Oxygen Concentration - - Weight 96.6 kg (213 lb) 08/06/2019 4:19 PM PLAYGROUND ATTENDANT Height 172.7 cm (5' 8) 08/06/2019 4:19 PM PLAYGROUND ATTENDANT Body Mass Index 32.39 08/06/2019 4:19 PM PLAYGROUND ATTENDANT Plan of Treatment Health Maintenance Due Date Last Done Comments Colon Cancer Screening Plan Due 1965 Diabetes: Albumin/Creatinine Ratio, Urine 1965 Diabetes: Creatinine 1965 Diabetes: Eye Exam 1965 Diabetes: Foot Exam 1965 Diabetes: Lipid Panel 1965 Hep C Screening (Preventive Services) 1965 Medicare Annual Wellness Visit 1965 PSA Screening Discussion 1965 HIV Screening (Preventive Services) 1981 HepB Vaccine (1) 1984 Zoster/Shingles Vaccine (1 o f 2) 2015 Pneumococcal Vaccine 50+ Yrs (2 of 2 - PCV) 07/25/2019 07/25/2018 Diabetes: HGBA1C 02/04/2020 08/06/2019, 05/29/2019, 02/27/2019 COVID-19 Vaccine (1 - 2023-2 5 season) 2025 Influenza Vaccine (#1) 2025 DTaP/Tdap/Td Vaccine (3 - Tdap) 07/25/2028 07/25/2018, 12/29/2006 RSV Vaccine (1 - 1-dose 75+ series) 2040 HepA Vaccine Aged Out No longer eligi ble based on patient's age to complete this topic Hib Vaccine Aged Out No longer eligi ble based on patient's age to complete this topic IPV (Polio) Vaccine Aged Out No longe r eligible based on patient's age to complete this topic MCV4 Vaccine Aged Out No longer eligi ble based on patient's age to complete this topic Meningococcal B Vaccine Aged Out No l onger eligible based on patient's age to complete this topic Procedures Procedure Name Priority Date/Time Associated Diagnosis Comments POCT GLYCOSYLATED HEMOGLOBIN (HGB A1C) Routine 08/06/2019 4:34 PM PLAYGROUND ATTENDANT Uncontrolled diabetes mellitus type 2 without complications (HRC) Essential hypertension Dyslipidemia Cerebrovascular accident (CVA), unspecified mechanism (HRC) from Last 3 Months or Most Recently Relevant to Health Maintenance Results * (ABNORMAL) POCT glycosylated hemoglobin (Hb A1C) (08/06/2019 4:34 PM PLAYGROUND ATTENDANT) Hemoglobin A1C (Rapid) 13.6(A) <=5.6 % POCT Cartridge Lot# 574 POCT Blood 08/06/2019 4:34 PM PLAYGROUND ATTENDANT Any RUIZ ET POINT OF CARE TEST ENT ER/EDIT ORDERABLES Final Result POCT from Last 3 Months or Most Recently Relevant to Health Maintenance Insurance [place]IC[place] Care Teams Forestry Tree Pruner Relationship Specialty Start Date End Date Rahat Rubio MD [id number] [place] [id number] PCP - General Family Practice 02/27/19
--- NOTE | 2025-07-24 22:48 | ED_ITS ---
HPI - General Adult General Chief complaint: Weakness Stated complaint: weakness Time Seen by Provider: 07/24/25 22:41 History of Present Illness HPI narrative: This 59-year-old male comes in by ambulance because he slipped and fell when getting out of bed. He reports some mild discomfort in his left arm but did not have any other injury. He did not hit his head or have loss of consciousness. Ambulance was contacted because he was unable to get up on his own. He does have a history of 3 strokes. He has residual left-sided weakness as result. He does not report any new symptoms in this regard. He is able to get up and ambulate but has less stability because of residual effects of the stroke. He states that he feels okay. Related Data Home Medications ?Medication ?Instructions ?Recorded ?Confirmed meclizine 25 mg tablet 25 mg PO TID PRN 05/06/25 rosuvastatin 20 mg tablet 20 mg PO DAILY 05/06/2503/12 Previous Rx's ?Medication ?Instructions ?Recorded alprazolam 0.5 mg tablet 0.5 mg PO QDAY PRN anxiety 3 0 days 12/23/24 #4 tabs hydrochlorothiazide 25 mg tablet 25 mg PO QAM #90 tabs 12/23/24 insulin glargine-yfgn 100 unit/mL 100 unit subcut QDAY #90 mL 12/26/24 (3 mL) subcutaneous pen (Semglee (insulin glargine-yfgn) Pen) insulin aspart U-100 100 unit/mL 60 unit (0.6 mL) subc ut BID #108 mL 01/27/25 (3 mL) subcutaneous pen pen needle, diabetic 32 gauge x #200 ea 03/03/25 (1st Tier Unifine Pentips) duloxetine 60 mg capsule,delayed 120 mg (2 x 60 mg) PO QDAY #180 04/28/25 release caps blood sugar diagnostic (Accu-Chek #100 ea 05/09/25 Guide test strips) blood-glucose sensor (Dexcom G7 #3 ea 05/09/25 Sensor device) blood-glucose,calculating machine mechanic,cont #1 ea 05/09/25 (Dexcom G7 Coin Machine Collector Supervisor) Allergies Allergy/AdvReac Type Severity Reaction Status Date / Time lisinopril Allergy Severe Verified 05/06/25 13:04 simvastatin Allergy Verified 05/06/25 13:04 Review of Systems Status of ROS: Reports: 10 or more systems reviewed and unremarkable except as noted in History and below Narrative: Constitutional: No fevers, no weight gain or loss. Eyes: No discharge. No vision changes. HENT: No congestion, no sore throat, no ear pain. Cardiovascular: No chest pain, no palpitations. Respiratory: No shortness of breath, no wheezes, no cough. Gastrointestinal: No abdominal pain, no vomiting, no diarrhea. Genitourinary: No dysuria, no hematuria. Musculoskeletal: Normal range of motion. Skin: No rashes, no pruritis. Neurological: No dizziness, sensory change, speech change. Residual affects with left-sided weakness from previous stroke. Endo/Heme/Allergies: No bruising or bleeding. No polydipsia. Pysch: no suicidality, no anxiety, no insomnia. All other systems reviewed and are negative. [facility] Medical History (Updated 07/24/25 @ 23:37 by Dion Tillman MD) History of angioedema ?Z87.898 - Personal history of other specified conditions (ICD-10) Bradycardia ?R00.1 - Bradycardia, unspecified (ICD-10) Diabetic ketoacidosis ?E11.10 - Type 2 diabetes mellitus with ketoacidosis without coma (ICD-10) History of pancreatitis ?Z87.19 - Personal history of other diseases of the digestive system (ICD-10) Tobacco abuse ?Z72.0 - Tobacco use (ICD-10) History of cerebrovascular accident ?Z86.73 - Personal history of transient ischemic attack (TIA), and cerebral infarction without residual deficits (ICD-10) Surgical History (Updated 05/30/22 @ 16:18 by Blaine Phelps) History of tonsillectomy ?Z90.89 - Acquired absence of other organs (ICD-10) History of third molar tooth extraction ?K08.409 - Partial loss of teeth, unspecified cause, unspecified class (ICD- 10) History of endoscopy ?Z98.890 - Other specified postprocedural states (ICD-10) Family History (Updated 05/30/22 @ 16:22 by Blaine Phelps) Father Aneurysm Stroke Brother Heart disease Type 2 diabetes mellitus Mother Breast cancer Social History (Updated 01/23/23 @ 10:57 by Rani Monsalve APRN, COMMUNITY YOUTH SECRETARY) Narrative: The patient is , he lives with his mother and sister in [place], [place]. The patient is on total disability after having a stroke, leaving him with left-sided paralysis, and he uses a cane to walk. Nonsmoker, former smoker. Alcohol maybe once a month. No illicit drug use. The patient does not have any children. Exam Narrative: Exam Narrative: Constitutional: Well-developed, well-nourished, no acute distress. HEENT: Normocephalic, atraumatic. Neck: Normal range of motion. Nontender. Supple. Heart: Regular. No murmurs. Normal rate. Intact distal pulses. Lungs: Clear to auscultation. No chest discomfort. No wheezes, rhonchi, or rales. Abdomen: Normal bowel sounds. Nontender. No rebound tenderness. Genitalia: Deferred. Back: No midline tenderness. Normal range of motion. Extremities: Normal range of motion. No injury. Skin: Intact. No rash. Warm. No erythema or pallor. Neurologic: No altered sensation. Alert and oriented. He has a slight left- sided facial droop and tongue deviates a bit to the left. Technician Assistant strength is weaker on the left also. He is able to raise each leg from the bed without difficulty. Psychiatric: No suicidality. No anxiety or depression. No insomnia. Nursing notes and vitals signs are reviewed. Const: Vital Signs, click to edit/add: Vital Signs - 24 hr 07/24/25 21:57 07/24/25 22:00 07/24/25 22:01 Temperature 98 F Pulse Rate 88 92 Pulse Rate [Pulse Oximeter] 93 Respiratory Rate 18 24 23 Blood Pressure 193/89 H Blood Pressure [Ri ght Forearm] 191/122 H Pulse Oximetry 93 95 94 Oxygen Delivery Me thod Room Air 07/24/25 22:15 07/24/25 22:30 07/24/25 22:32 Temperature Pulse Rate 103 H 49 L 52 L Pulse Rate [Pulse Oximeter] Respiratory Rate 25 H 35 H 19 Blood Pressure 189/89 H Blood Pressure [Ri ght Forearm] Pulse Oximetry 94 92 94 Oxygen Delivery Me thod 07/24/25 22:45 07/24/25 23:00 07/24/25 23:02 Temperature Pulse Rate 77 75 49 L Pulse Rate [Pulse Oximeter] Respiratory Rate 13 24 34 H Blood Pressure 161/111 H Blood Pressure [Ri ght Forearm] Pulse Oximetry 92 92 95 Oxygen Delivery Me thod 07/24/25 23:15 07/24/25 23:30 Temperature Pulse Rate 52 L 96 Pulse Rate [Pulse Oximeter] Respiratory Rate 31 H 31 H Blood Pressure Blood Pressure [Ri ght Forearm] Pulse Oximetry 92 91 Oxygen Delivery Me thod Course Vital Signs Vital signs: Initial Vital Signs Temperature 98 F 07/24/25 21:57 Temperature Source Temporal Artery Scan 07/24/25 21:57 Pulse Rate 93 07/24/25 21:57 Respiratory Rate 18 07/24/25 21:57 Blood Pressure 191/122 H 07/24/25 21:57 Blood Pressure Mean 145 H 07/24/25 21:57 Blood Pressure Position Semi-Fowlers 07/24/25 21:57 Pulse Oximetry 93 07/24/25 21:57 Oxygen Delivery Method Room Air 07/24/25 21:57 Vital Signs Temperature 98 F 07/24/25 21:57 Pulse Rate 93 07/24/25 21:57 Respiratory Rate 18 07/24/25 21:57 Blood Pressure 191/122 H 07/24/25 21:57 Pulse Oximetry 93 07/24/25 21:57 Oxygen Delivery Method Room Air 07/24/25 21:57 Temperature 98 F 07/24/25 21:57 Pulse Rate 96 07/24/25 23:30 Respiratory Rate 31 H 07/24/25 23:30 Blood Pressure 161/111 H 07/24/25 23:02 Pulse Oximetry 91 07/24/25 23:30 Oxygen Delivery Method Room Air 07/24/25 21:57 Medical Decision Making [facility] Narrative Medical decision making narrative: This patient is brought in by ambulance as he was unable to get up after a fall when getting out of bed. He states that he feels okay and feels okay to return back home. He did receive a L of normal saline intravenously. Labs were also acquired and these returned with good results. His glucose is elevated at 321 and his potassium is slightly low. He is okay to return home. He does have a mild left-sided weakness as residual affects of previous stroke. He is not showing any new neurologic deficits. Lab Data Labs: Lab Results 07/24/25 Range/Units 22:17 WBC 10.35 (4.50-11.00) K/uL RBC 4.94 (4.30-5.90) m/uL Hgb 14.1 (13.5-17.5) gm/dL Hct 42.0 (37.0-53.0) % MCV 85 (80-100) fL MCH 29 (26-34) pg MCHC 34 (32-36) gm/dL RDW Coeff of Sean 13.4 (11.5-15.5) % Plt Count 344 (140-440) K/uL Neut % (Auto) 72.6 H (42.0-72.0) % Lymph % (Auto) 13.8 L (20-44) % [place] % (Auto) 9.7 (0.0-11.0) % Eos % (Auto) 2.1 (0.0-7.0) % Baso % (Auto) 0.7 (0.0-3.0) % Neut # (Auto) 7.50 H (1.7-7.0) K/uL Lymph # (Auto) 1.40 (0.90-2.90) K/uL [place] # (Auto) 1.00 H (0.00-0.90) K/UL Eos # (Auto) 0.22 (0.00-0.50) K/uL Baso # (Auto) 0.07 (0.00-0.30) K/uL Abs Immat Gran (auto) 0.11 (0.00-0.30) K/uL Imm/Tot Granulo (auto) 1.1 % Sodium 134 L (135-149) mmol/L Potassium 3.4 L (3.6-5.1) mmol/L Chloride 93 L (96-114) mmol/L Carbon Dioxide 29 (20-32) mmol/L Anion Gap 12 (7-15) mEq/L BUN 15 (7-30) mg/dL Creatinine 0.9 (0.5-1.5) mg/dL Estimated Creat Clear 82.63 Estimated GFR 98 ml/min Glucose 321 H (60-115) mg/dL Calcium 8.4 (8.4-10.6) mg/dL Discharge Plan Discharge Clinical Impression: Late effects of cerebrovascular accident Patient Disposition: Home w/ Parent or Adult Condition: Stable Additional Instructions: Continue current plans. Follow-up with primary physician for ongoing management. Return worsening. Prescriptions: No Action alprazolam 0.5 mg tablet 0.5 mg PO QDAY PRN (Reason: anxiety) 30 Days Qty: 4 5RF hydrochlorothiazide 25 mg tablet 25 mg PO QAM Qty: 90 3RF meclizine 25 mg tablet 25 mg PO TID PRN rosuvastatin 20 mg tablet 20 mg PO DAILY insulin glargine-yfgn [Semglee(insulin glarg-yfgn)Pen] 100 unit/mL (3 mL) insulin pen 100 unit subcut QDAY Qty: 90 3RF insulin aspart U-100 100 unit/mL (3 mL) insulin pen 60 unit subcut BID Qty: 108 3RF (DME) pen needle, diabetic [1st Tier Unifine Pentips] 32 gauge x 5/32 needle See Rx Instructions .Route Qty: 200 6RF Rx Instructions: qid duloxetine 60 mg capsule,delayed release(DR/EC) 120 mg PO QDAY Qty: 180 3RF (DME) Accu-Chek Guide test strips Strip See Rx Instructions .Route Qty: 100 6RF Rx Instructions: Test blood sugar 4 times daily (DME) Dexcom G7 Sensor Device See Rx Instructions .Route Qty: 3 3RF Rx Instructions: As directed (DME) Dexcom G7 Coin Machine Collector Supervisor Misc See Rx Instructions .Route Qty: 1 0RF Rx Instructions: As directed Follow Up/Referrals: Rani Monsalve APRN, COMMUNITY YOUTH SECRETARY [Primary Care Provider, Family Practice] Stand Alone Forms: MyHealth Info Instructions
[2025-07-24 22:57] LABS: Hematocrit* 42.0 % (37.0-53.0); Hemoglobin* 14.1 gm/dL (13.5-17.5); Immature Granulocytes Abs Auto 0.11 K/uL (0.00-0.30); Immature Granulocytes Pct Auto 1.1 %; Mean Corpuscular HGB Conc 34 gm/dL (32-36); Mean Corpuscular Hemoglobin 29 pg (26-34); Mean Corpuscular Volume 85 fL (80-100); RDW Coefficient of Variation % 13.4 % (11.5-15.5); Red Blood Count* 4.94 m/uL (4.30-5.90); White Blood Count* 10.35 K/uL (4.50-11.00)
[2025-07-24 23:02] LABS: Lymphocytes Absolute Auto 1.40 K/uL (0.90-2.90); Slide Review Reflex No
[2025-07-24 23:07] LABS: Chloride* 93 mmol/L (96-114)
[2025-07-24 23:08] LABS: Potassium* 3.4 mmol/L (3.6-5.1)
[2025-07-24 23:10] LABS: Blood Urea Nitrogen* 15 mg/dL (7-30); Creatinine* 0.9 mg/dL (0.5-1.5); Est. Creatinine Clearance* 82.63; Estimated Glomerular Filt Rate 98 ml/min
[2025-07-24 23:11] LABS: Anion Gap 12 mEq/L (7-15); Calcium* 8.4 mg/dL (8.4-10.6); Carbon Dioxide* 29 mmol/L (20-32); Glucose* 321 mg/dL (60-115)
[2025-07-24 23:59] LABS: Sodium* 134 mmol/L (135-149)
== END 2025-07-25 00:15 | disposition home or self-care (01) ==
PROVIDERS: Emergency Provider Emergency Medicine Emergency Medical Services; PCP Nurse Practitioner Family
DX: I69.354 Hemiplegia and hemiparesis following cerebral infarction affecting left non-dominant side (principal); I10 Essential (primary) hypertension; R73.9 Hyperglycemia, unspecified; W19.XXXA Unspecified fall, initial encounter
CPT/HCPCS: 36415; 80048; 85025; 99284; 99291

== ENCOUNTER 2025-07-25 20:12 | Emergency (ER) | payer MEDICARE, SELFPAY ==
--- OUTSIDE RECORDS SUMMARY | 2022-07-01 00:48 | XMS_ITS | Continuity of Care Document ---
Author Organization [facility] Address [address] [address] [place] [address] Phone Care Team Providers Care Manager Test Name Role Phone aMr CASTILLO, Stock Unavailable Unavailable Allergies, Adverse Reactions, Alerts Substance Reaction Status Criticality Qoxbdbf-DDF-VpY Reductase Inhibitors Acti ve No Information Medications Medication Instructions Dosage Effective Dates (start - stop) Status Comments HUMALOG KWIKPEN U-100 (unknown strength) inject by subcutaneous route per prescriber's instructions. Insulin dosing requires individualization . Not Available - Active TURMERIC (unknown strength) take 1 capsule by oral route every day Not Available - Active ondansetron 4 mg disintegrating tablet take 1 tablet by oral route every 8 hours as needed 4 MG - Active Xanax 1 mg tablet take 1 tablet by oral route 3 times every day 1 MG - Active Tylenol 325 mg tablet take 1 tablet by oral route every hour as needed 325 MG - Active fluoxetine 20 mg tablet take 1 tablet by oral route every day in the morning 20 MG - Active Novolog Flexpen U-100 Insulin aspart 100 unit/mL (3 mL) subcutaneous inject by subcutaneous route per prescriber's instructions. Insulin dosing requires individualization . 0.00 - Active quetiapine 50 mg tablet take 1 tablet by oral route every day 50 MG - Active lisinopril 10 mg tablet take 1 tablet by ORAL route every day 10 MG - Active metformin 500 mg tablet take 2 tablet by ORAL route 2 times every day with morning and evening meals 1000 MG - Active OMEPRAZOLE 20MG CPDR TAKE ONE CAPSULE BY MOUTH TWICE A DAY 30 MINUTES TO ONE HOUR PRIOR TO A MEAL - No Longer Active Procedures Procedure Date Ugi Endo; Dx W/wo Collec Specm 22 Ugi Endo; W/bx 1/mx Subsqt Hosp-da E&m Minr Compl 2 Subsqt Hosp-da E&m Minr Compl 2 Subsqt Hosp-da E&m Minr Compl 2 Init Hosp-da E&m Low Severity 2 Ugi Endo; Dx W/wo Collec Specm 22 Offic/outpt E&m New Mod-hi Advance Directives Directive Yes / No Effective Date File Name No Information Encounters Encounter Description Practice Location Reason(s) For Visit Diagnoses Date Provider Providers Copied on Encounter [facility], [address] [address], [place], [place], [id number], tel:[phone] [facility] No Information 2 Mar CASTILLO [facility]. [address] [place] [address], [id number], [place]. tel:[phone] [facility], [address] [address], [place], [place], [address], tel:[phone] [facility] GI Symptoms or Concerns (chief complaint) Diaphragmatic hernia without obstruction or gangrenePerso nal history of other diseases of the digestive systemDiaphra gmatic hernia without obstruction or gangrene 2 Mar Stock. [address] [place] [address], [id number], [place]. tel:[phone] Referring Provider: Referral Self, USE FOR SELF REFERRALS. [facility], [address] [address], [place], [place], [address], [place] tel:[phone] [facility] No Information 2 Mar Katahim. [address] [facility] [address], [place], [place], [address], [place]. tel:[phone] [facility], [address] [address], [place], [id number], [place] tel:[phone] [facility] No Information 2 Mar Stock. [address] [facility], [facility] [address], [place], [address], [place]. tel:[phone] [facility], [address] [address], [place], [id number], [place] tel:[phone] [facility] EsophagitisHi atal herniaEsophag itis, unspecified without bleedingDiaph ragmatic hernia without obstruction or gangrene 2 Mar Stock. [address] [facility], [facility] [address], [place], [id number], [place]. tel:[phone] Referring Provider: Referral Self, USE FOR SELF REFERRALS. [facility], [address] [address], [place], [address], [place] tel:[phone] [facility] No Information 2 Mar Stock. [address] [facility], [facility] [address], [place], [address], [place]. tel:[phone] Subsqt Hosp-da E&m Minr Compl [facility], [address] [address], [place], [id number], [place] tel:[phone] [facility] No Information 0 2 No Information Init Hosp-da E&m Low Severity [facility], [address] [address], [place], [address], [place] tel:[phone] [facility] No Information 0 2 Shobha Walden. [address] [facility], [facility] [address], [place], [place], [id number], [place]. tel:[phone] Referring Provider: Caron Craig MD, [address], [place], [address]. tel:[phone] Offic/outpt E&m New Mod-[facility] [address] [address], [place], [place], [address], tel:[phone] [facility] GI Symptoms or Concerns (chief complaint) Bilious vomiting with nauseaDietary counseling and surveillanceC olon cancer screening 9 Paige Aguirre. [address] [facility], [facility] [address], [place], [place], [address], [place]. tel:[phone] Family History Family Member Type Diagnosis Age At Onset Paternal grandfather Problem (finding) stroke Father Problem (finding) stroke Mother Problem (finding) Thyroid disorder Immunizations Vaccine Date Status Comments SARS-COV-2 (COVID-19) vaccin e, mRNA, spike protein, LNP, preservative free, 30 mcg/0.3mL dose administered Note: [facility] bi-direct ional interface ; Source: Other Registry Pneumovax 23 administered Note: [facility] bi-d irectional interface ; Source: Other Registry tetanus toxoid, reduced diphtheria toxoid, and acellular pertussis vaccine, adsorbed administered Note: [facility] b i-directional interface ; Source: Other Registry tetanus toxoid, reduced diphtheria toxoid, and acellular pertussis vaccine, adsorbed administered Note: [facility] b i-directional interface ; Source: Other Registry Payers Payer name Insurance type Covered libertarian ID Authoriza tion(s) Medicare NGS MB [id number] Social History Type Description Quantity Date Captured Comments Sex Male Smoking Status No Information Chief Complaint And Reason For Visit No Information Reason For Referral Reason For Referral No Information Plan Of Treatment Date Type Action Status Goal Lifestyle education regardin g diet completed Referral Ordered: EGD Appointment date/timeframe: 04/05/2022 ordered History Of Present Illness Encounter Date Complaint History Of Prese nt Illness GI Symptoms or Concerns GI Symptoms or Concerns This is a 53-year-old man who presents as a consultation from Rahat Rubio in consultation for nausea and vomiting. He has a history of type 2 diabetes, hypertension, and stroke. This was in May 2018 and he has some residual left-sided weakness since then. He is a chronic smoker as well. Since his stroke last May, he has had daily nausea. He vomits most days, especially upon awakening. Initially, he thought it was due to his medications, but he is tending to vomit even before he takes his pills. Sometimes, he will have a week without symptoms. This is for unclear reasons. He has not identified any dietary triggers. Most of the time, the vomiting is bilious, although at times he will vomit food that he ate the night before. He has not found a clear medication trigger. He started Ozempic last month, but this has not worsened symptoms. He denies other changes and diabetes medications. He recently changed his antidepressant to fluoxetine again, but this is a lowe Functional Status Date Functional Assessmen t No Information Instructions Date Instruction Additional Infor solitario Hiatal Hernia Related to Diaph ragmatic hernia without obstruction or gangrene Hiatal Hernia Related to Esoph agitis I have prescribed om eprazole 20 mg twice daily to take for 1 month. I asked him to contact me with an update after that. If his symptoms persist, we would then consider an upper endoscopy to include gastric biopsies. If symptoms improve over time, we can slowly wean down on his treatment to lowest effective dose, or perhaps even transition him to an H2 clark. Down the road, we may consider a gastric emptying study to evaluate for gastroparesis. I will plan to see him again in about 6 weeks in followup. Related to Bilious vomiting with nausea Lifestyle education regarding di et Related to Dietary counseling and surveillance Assessments Type Assessment Date No Information Patient Care Teams Name Effective Dates (start - stop) Status Members No Information
--- OUTSIDE RECORDS SUMMARY | 2022-07-01 00:48 | XMS_ITS | Continuity of Care Document ---
Author Organization [facility] Address [address] [address] [place] [address] Phone Care Team Providers Care Installment Loan Collector Name Role Phone Mar CASTILLO, Stock Unavailable Unavailable Allergies, Adverse Reactions, Alerts Substance Reaction Status Criticality Nurldud-AOT-ReU Reductase Inhibitors Acti ve No Information Medications [...] Diagnoses Date Provider Providers Copied on Encounter [facility], [address] [address], [place], [place], [address], tel:[phone] [facility] No Information 2 Mar CASTILLO [facility]. [address] [place] [address], [id number], [place]. tel:[phone] [facility], [address] [address], [place], [place], [address], tel:[phone] [facility] GI Symptoms or Concerns (chief complaint) Diaphragmatic hernia without obstruction or gangrenePerso nal history of other diseases of the digestive systemDiaphra gmatic hernia without obstruction or gangrene 2 Mar Stock. [address] [place] [address], [id number], [place]. tel:[phone] Referring Provider: Referral Self, USE FOR SELF REFERRALS. [facility], [address] [address], [place], [place], [address], [place] tel:[phone] [facility] No Information 2 Mar Katahim. [address] [facility], [facility] [address], [place], [place], [address], [place]. tel:[phone] [facility], [address] [address], [place], [address], [place] tel:[phone] [facility] No Information 2 Mar Stock. [address] [facility], [facility] [address], [place], [address], [place]. tel:[phone] [facility], [address] [address], [place], [address], [place] tel:[phone] [facility] EsophagitisHi atal herniaEsophag itis, unspecified without bleedingDiaph ragmatic hernia without obstruction or gangrene 2 Mar Stock. [address] [facility], [facility] [address], [place], [address], [place]. tel:[phone] Referring Provider: Referral Self, USE FOR SELF REFERRALS. [facility], [address] [address], [place], [address], [place] tel:[phone] [facility] No Information 2 Mar Stock. [address] [facility], [facility] [address], [place], [address], [place]. tel:[phone] Subsqt Hosp-da E&m Minr Compl [facility], [address] [address], [place], [address], [place] tel:[phone] [facility] No Information 0 2 No Information Init Hosp-da E&m Low Severity [facility], [address] [address], [place], [address], [place] tel:[phone] [facility] No Information 0 2 Shobha Walden. [address] [facility], [facility] [address], [place], [place], [address], [place]. tel:[phone] Referring Provider: Caron Craig MD, [address], [place], [address]. tel:[phone] Offic/outpt E&m New Mod-[facility] [address] [address], [place], [place], [address], tel:[phone] [facility] GI Symptoms or Concerns (chief complaint) Bilious vomiting with nauseaDietary counseling and surveillanceC olon cancer screening 9 Paige Aguirre. [address] [facility], [facility] [address], [place], [place], [address], [place]. tel:[phone] Family History Family Member Type Diagnosis Age [...] libertarian ID Authoriza tion(s) Medicare NGS MB [id number] Social History Type Description Quantity Date Captured [...]
[2025-07-25] VITALS (40 sets, daily range): BP systolic 148–205; BP diastolic 79–138; PULSE 90–103; RESP 12–28; TEMP 37.2; O2SAT 83–98; BMI 42.4
--- OUTSIDE RECORDS SUMMARY | 2025-07-25 20:14 | XMS_ITS | Clinical Summary ---
Author Organization [facility] Address [address] [place] [address] Care Team Providers Care Weighing Station Operator Name Role Phone Elsewhere, Pcp Primary Care Provider Unavailabl e Source Comments Patient records contain information from all sites at [facility]. For routine questions regarding patient records, call [phone] during business hours, M-F 8:00 AM - 5:00 PM Central Time. Record requests for emergency care only can be directed to [phone] at any time.[facility] Allergies Active Allergy Reactions Criticality Noted [...] Years Used Date Smoking Tobacco: Every Day [facility] Utilities Answer Date Recorded In the past 12 months has e [place], gas, oil, or water [employer] threatened to shut off services in your [...] your living situation today? I have a [facility] place to live 09/24/2024 Sex and Gender Information Value Date Recorded Sex Assigned at Not on file Legal Sex Male 1:58 PM CDT Gender Identity Not on file Sexual Orientation Not on file Last Filed Vital Signs Vital Sign Reading Time Taken Comments Blood Pressure 152/87 09/28/2024 12:30 PM MENTAL HEALTH DIRECTOR Pulse 96 09/28/2024 12:30 PM MENTAL HEALTH DIRECTOR Temperature 37.1 C (98.8 F) 09/28/2024 12:30 PM MENTAL HEALTH DIRECTOR Respiratory Rate 18 09/28/2024 12:30 PM MENTAL HEALTH DIRECTOR Oxygen Saturation 96% 09/28/2024 12:30 PM MENTAL HEALTH DIRECTOR Inhaled Oxygen Concentration - - Weight 114 kg (251 lb 1.7 oz) 09/24/2024 5:00 AM MENTAL HEALTH DIRECTOR Height 174 cm (5' 8.5) 09/26/2024 10:43 AM MENTAL HEALTH DIRECTOR Body Mass Index 37.62 09/24/2024 5:00 AM MENTAL HEALTH DIRECTOR Plan of Treatment Health Maintenance Due Date [...] CG8+, POCT, B STAT 09/21/2024 7:51 PM MENTAL HEALTH DIRECTOR BASIC METABOLIC PANEL, S/P STAT 09/21/2024 7:51 PM MENTAL HEALTH DIRECTOR HEMOGLOBIN A1C, B Routine 09/21/2024 7:4 6 PM MENTAL HEALTH DIRECTOR LIPID PANEL, S Routine 01/10/2017 10:55 AM CDT from Last 3 Months or Most Recently Relevant to Health Maintenance Results * (ABNORMAL) Venous Blood Gas and Electrolytes CG8+, POCT (09/21/2024 7:51 PM MENTAL HEALTH DIRECTOR) [facility] Sample Site, POCT Venstick 09/21/2024 8:01 PM MENTAL HEALTH DIRECTOR PCLX Comment: ----ADDITIONAL INFORMATION---- Performed at the Point of Care pH, Venous, POCT, B 7.34 7.32 - 7.43 09/21/2024 8:01 PM MENTAL HEALTH DIRECTOR PCSM Comment: ----ADDITIONAL INFORMATION---- Performed at the Point of Care pCO2, Venous, POCT, B 57(H) 41 - 51 mm Hg 09/21/2024 8:01 PM MENTAL HEALTH DIRECTOR PCSM Comment: ----ADDITIONAL INFORMATION---- Performed at the Point of Care pO2, Venous, POCT, B 23 Not Applicable mm Hg 09/21/2024 8:01 PM MENTAL HEALTH DIRECTOR PCSM Comment: ----ADDITIONAL INFORMATION---- Performed at the Point of Care Base Excess, Venous, POCT, B 5 Not Applicable mmol/L 09/21/2024 8:01 PM MENTAL HEALTH DIRECTOR PCSM Comment: ----ADDITIONAL INFORMATION---- Performed at the Point of Care HCO3, Venous, POCT, B 31 Not Applicable mmol/L 09/21/2024 8:01 PM MENTAL HEALTH DIRECTOR PCSM Comment: ----ADDITIONAL INFORMATION---- Performed at the Point of Care Sodium, POCT, B 136 135 - 145 mmol/L 09/21/2024 8:01 PM MENTAL HEALTH DIRECTOR PCLX Comment: ----ADDITIONAL INFORMATION---- Performed at the Point of Care Potassium, POCT, B 4.1 3.6 - 5.2 mmol/L 09/21/2024 8:01 PM MENTAL HEALTH DIRECTOR PCLX Comment: ----ADDITIONAL INFORMATION---- Performed at the Point of Care Calcium, Ionized, POCT, B 5.10 4.65 - 5.30 mg/dL 09/21/2024 8:01 PM MENTAL HEALTH DIRECTOR PCLX Comment: ----ADDITIONAL INFORMATION---- Performed at the Point of Care Glucose, POCT, B 347(H) 70 - 140 mg/dL 09/21/2024 8:01 PM MENTAL HEALTH DIRECTOR PCLX Comment: ----ADDITIONAL INFORMATION---- Performed at the Point of Care Hematocrit, POCT, B 45.0 38.3 - 48.6 % 09/21/2024 8:01 PM MENTAL HEALTH DIRECTOR PCLX Comment: ----ADDITIONAL INFORMATION---- Performed at the Point of Care Blood (Blood, Venous) 09/21/2024 7:51 PM MENTAL HEALTH DIRECTOR 09/21/2024 7:51 PM MENTAL HEALTH DIRECTOR Ashley Sanchez M.D., Ph.D. LAB POCT ORDERABLES - DEVICE Final Result POC [facility] [address] [place] [address], [facility] PCLX [facility] [address] [place] [address] PCSM [facility] POC [address] [place] [address] * (ABNORMAL) Basic Metabolic Panel (09/21/2024 7:51 PM MENTAL HEALTH DIRECTOR) Potassium, P 4.1 3.6 - 5.2 mmol/L 09/21/2024 8:12 PM MENTAL HEALTH DIRECTOR STMA Sodium, P 136 135 - 145 mmol/L 09/21/2024 8:12 PM MENTAL HEALTH DIRECTOR STMA Chloride, P 98 98 - 107 mmol/L 09/21/2024 8:12 PM MENTAL HEALTH DIRECTOR STMA Bicarbonate, P 27 22 - 29 mmol/L 09/21/2024 8:12 PM MENTAL HEALTH DIRECTOR STMA Anion Gap, P 11 7 - 15 09/21/2024 8:12 PM MENTAL HEALTH DIRECTOR STMA BUN (Blood Urea Nitrogen), P 23 8 - 24 mg/dL 09/21/2024 8:12 PM MENTAL HEALTH DIRECTOR STMA Creatinine 0.88 0.74 - 1.35 mg/dL 09/21/2024 8:12 PM MENTAL HEALTH DIRECTOR STMA Estimated GFR (eGFR) >90 >=60 mL/min/BSA 09/21/2024 8:12 PM MENTAL HEALTH DIRECTOR STMA Comment: Estimated GFR calculated using the 2020 CKD_EPI creatinine equation. Calcium, Total, P 9.7 8.6 - 10.0 mg/dL 09/21/2024 8:12 PM MENTAL HEALTH DIRECTOR STMA Glucose, P 370(H) 70 - 140 mg/dL 09/21/2024 8:12 PM MENTAL HEALTH DIRECTOR STMA Blood (Blood, Venous) 09/21/2024 7:51 PM MENTAL HEALTH DIRECTOR 09/21/2024 7:56 PM MENTAL HEALTH DIRECTOR us Ashley Sanchez M.D., Ph.D. LAB BLOOD ADD-ON Fi nal Result Performing Organization Address [facility] de Phone Number [facility] [address] [place] [address], [facility] STMA [facility] [address] [place] [address] * (ABNORMAL) Hemoglobin A1c (09/21/2024 7:46 PM MENTAL HEALTH DIRECTOR) Hemoglobin A1c, B 10.4(H) 4.0 - 5.6 % 09/22/2024 7:14 AM MENTAL HEALTH DIRECTOR DTL Comment: Hemoglobin A1c values greater than or equal to 6.5 percent are diagnostic for diabetes mellitus. Diagnosis should be confirmed by repeat testing. In diabetic patients, HbA1c goals should be discussed with healthcare provider. Blood (Blood, Venous) 09/21/2024 7:46 PM MENTAL HEALTH DIRECTOR 09/22/2024 6:52 AM MENTAL HEALTH DIRECTOR us Marlo Velázquez M.D. LAB BLOOD ADD-ON Final Resul t Performing Organization Address [facility] Co de Phone Number [facility] [address] [place] [address], [place] DTL [facility] [address] [place] [address] * (ABNORMAL) Lipid Panel (01/10/2017 10:55 AM [...] for FH and FDB is available through [email or web address] [email or web address]: FH/ADH Genetic Reflex Panel (test ADHP). Acquired (non-genetic) causes of markedly increased LDL cholesterol include cholestatic liver disease due to the presence of LpX. If a genetic form of hypercholesterolemia is suspected, family studies including biochemical testing for lipids (total cholesterol,triglycerides, LDL cholesterol and HDL cholesterol) are recommended. Please contact the laboratory at or the on-line test catalog at [employer] for information about how to order these [...] Advance Directives For more information, please contact: [phone] Documents on File Type Date Recorded Patient Chlorobutadiene Scrubber Operator Expl anation Advance Directives 09/12/2022 12:05 PM GERTRUDE DY/ORGAN DONATION * Full Code (Latest Code Status on File) Date Activated Date Inactivated Comments 09/22/2024 4:50 AM 09/28/2024 2:53 PM Question Answer Comments Full Code: Not Discussed Due to: Patient not available Intubated Care Teams Weighing Station Operator Relationship Specialty Start Date End Date Elsewhere, Pcp PCP - General Family Medicine 08/14/19
--- OUTSIDE RECORDS SUMMARY | 2025-07-25 20:14 | XMS_ITS | Clinical Summary ---
Author Organization [facility] Address [address], [place] [address] Care Team Providers Care Health Care / Medical Job Titles Name Role Phone Rahat Rubio MD Primary Care Provider [phone] Source Comments You are receiving this document as you are listed as the primary care provider,follow-up provider, or the patient has been referred to you for consultation.This is in compliance with the Medicare and[place] EHR Incentive Program,which states Providers who transition [...] Comments Blood Pressure 132/88 08/06/2019 4:19 PM COLLEGE [facility]IRE Pulse 104 08/06/2019 4:19 PM [facility] H[facility] Temperature - - Respiratory Rate - - Oxygen Saturation - - Inhaled Oxygen Concentration - - Weight 96.6 kg (213 lb) 08/06/2019 4:19 PM COLLEGE HIRE Height 172.7 cm (5' 8) 08/06/2019 4:19 PM COL[facility] [employer] Body Mass Index 32.39 08/06/2019 4:19 PM COLLEGE HIRE Plan of Treatment Health Maintenance Due Date [...] HEMOGLOBIN (HGB A1C) Routine 08/06/2019 4:34 PM COLLE[facility]IRE Uncontrolled diabetes mellitus type 2 without complications (HRC) Essential hypertension Dyslipidemia Cerebrovascular accident (CVA), unspecified mechanism (HRC) from Last 3 Months or Most Recently Relevant to Health Maintenance Results * (ABNORMAL) POCT glycosylated hemoglobin (Hb A1C) (08/06/2019 4:34 PM COLLEGE [facility]) Hemoglobin A1C (Rapid) 13.6(A) <=5.6 % POCT Cartridge Lot# [id number] POCT Blood 08/06/2019 4:34 PM COLLE[employer] HIRE Any RUIZ ET POINT OF CARE TEST ENT ER/EDIT ORDERABLES Final Result POCT from Last 3 Months or Most Recently Relevant to Health Maintenance Insurance [place]ICARE [place] Care Teams Health Care / Medical Job Titles Relationship Specialty Start Date End Date Rahat Rubio MD [address] [place] [address] PCP - General Family Practice 02/27/19
--- OUTSIDE RECORDS SUMMARY | 2025-07-25 20:14 | XMS_ITS | Clinical Summary ---
Author Organization [facility] Address [address] [place] [address] Care Team Providers Care Mechanical Systems Designer Name Role Phone [facility], [place] Unavailable [phone] Tanisha Angulo PA-C Primary Care Provider [phone] Allergies Active Allergy Reactions Criticality Noted Date [...] A1C 100 Each 11/26/19 22 3:02 PM TAR ROOFER 022 Active Blood-Glucose MeterIndications:DM (diabetes mellitus) type 2, uncontrolled, with ketoacidosis (HC) Use as directed to test 3 times daily. 1 Each 11/26/19 22 3:02 PM TAR ROOFER 022 Active lancetsIndications:DM (diabetes mellitus) type 2, uncontrolled, with ketoacidosis (HC) Dispense item covered by pt ins. E11.65 NIDDM type II, uncontrolled - Test 3 times/day. Reason: High A1C 100 Each 11/26/19 22 3:02 PM TAR ROOFER 022 Active acetaminophen (TYLENOL) 325 mg tabletIndications:Pain [...] meals. 60 Tablet 11/26/19 22 3:02 PM TAR ROOFER Active magnesium oxide (MAG-OX 400) 400 mg tabletIndications:Hypom agnesemia Take 1 Tablet (400 mg) by mouth 2 times daily for 4 days, then decrease to 1 tablet by mouth daily thereafter 30 Tablet 11/26/19 22 3:02 PM TAR ROOFER Active ondansetron (ZOFRAN ODT) 4 mg disintegrating tabletIndications:Nause a and vomiting, unspecified vomiting type Place 1 to 2 Tablets (4-8 mg) on the tongue every 8 hours if needed for Nausea/Vomiting. 30 Tablet 11/26/19 22 3:02 PM TAR ROOFER Active sucralfate (CARAFATE) 1 gram tabletIndications:Esoph agitis Take 1 Tablet (1 g) by mouth 4 times daily before meals and at bedtime. 120 Tablet 11/26/19 22 3:02 PM TAR ROOFER Active glimepiride (AMARYL) 4 mg tabletIndications:DM (diabetes mellitus) type 2, uncontrolled, with ketoacidosis (HC) Take 1 Tablet (4 mg) by mouth once daily with a meal. 90 Tablet 3 11/26/19 22 3:02 PM TAR ROOFER 022 Active insulin glargine, U-100, (Lantus Solostar U-100 Insulin) 100 unit/mL (3 mL) penIndications:DM (diabetes mellitus) type 2, uncontrolled, with ketoacidosis (HC) Inject 15 units subcutaneous at bedtime. 15 mL 3 11/26/19 22 3:02 PM TAR ROOFER 022 Active metFORMIN (GLUCOPHAGE XR) 750 mg Extended-Release tabletIndications:DM (diabetes mellitus) type 2, uncontrolled, with ketoacidosis (HC) Take 1 Tablet (750 mg) by mouth once daily. 90 Tablet 3 11/26/19 3:02 PM TAR ROOFER 022 Active Insulin [place], Disposable, (Lulu Pen Needle) 32 gauge x [...] on file Legal Sex Male 8:06 AM TAR ROOFER Gender Identity Not on file Sexual Orientation Not on file Obstetrics History Last Filed Vital Signs Vital Sign Reading Time Taken Comments Blood Pressure 148/80 03/13/2025 2:08 PM CDT Pulse 90 03/13/2025 2:08 PM CDT Temperature 37.3 C (99.1 F) 11/25/2021 7:57 AM TAR ROOFER Respiratory Rate 16 03/13/2025 2:08 PM CDT Oxygen Saturation 99% 11/25/2021 12:00 PM TAR ROOFER Inhaled Oxygen Concentration - - Weight 100.2 kg (221 lb) 03/13/2025 2:08 PM CDT Height 172.7 cm (5' 8) 11/19/2021 9:00 PM TAR ROOFER Body Mass Index 33.6 11/19/2021 9:00 PM TAR ROOFER Plan of Treatment Health Maintenance Due Date [...] Comments LIPID PANEL DEIDRE 11/21/2021 7:02 AM TAR ROOFER from Last 3 Months or Most Recently Relevant to Health Maintenance Results * LIPID PANEL (11/21/2021 7:02 AM TAR ROOFER) CHOLESTEROL,TOTAL 155 100 - 199 mg/dL 11/21/2021 7:37 AM TAR ROOFER [facility] TRIGLYCERIDES 135 <150 mg/dL 11/21/2021 7:37 AM TAR ROOFER [facility] HDL CHOLESTEROL 45 >40 mg/dL 7:37 AM TAR ROOFER [facility] NON-HDL CHOLESTEROL 110 <145 mg/dl 11/21/2021 7:37 AM TAR ROOFER [facility] CHOL/HDL RATIO 3.44 <4.50 11/21/2021 7:37 AM TAR ROOFER [facility] LDL CHOLESTEROL 83 <=130 mg/dL 11/21/2021 7:37 AM TAR ROOFER [facility] VLDL CHOLESTEROL 27 <=30 mg/dL 11/21/2021 7:37 AM TAR ROOFER [facility] PROVIDER ORDERED STATUS RANDOM 11/21/2021 7:37 AM TAR ROOFER [facility] Blood BLOOD SPECIMEN / Unknown Non-Lab Venipuncture / Unknown 11/21/2021 7:02 AM TAR ROOFER 11/21/2021 7:12 AM TAR ROOFER us Becca Estrada MD CHEMISTRY Final Re sult [facility] [address] [place] [address], [place] from Last 3 Months or Most Recently Relevant to Health Maintenance Insurance MEDICARE [place] ONLY Member Subscriber Plan / Payer ( fective 2018-Present) Name:Jose De Jesus Alonso Member ID:[id number] Relation to Subscriber:Self Name:Jose De Jesus Alonso Subscriber ID:[id number] Payer ID:Not on file Group ID:Not on file Type:Not on file Address: ATTN: CLAIMS [address] [place] [phone] MEDICARE PART A [place] ONLY MEDICARE PART [...] Preferences, Provider to review later Care Teams Mechanical Systems Designer Relationship Specialty Start Date End Date Tanisha Angulo PA-C [address] [place], [place] [address] [phone] PCP - General Physician Grinder Set Up Operator Internal 11/26/21 [facility] [address], [place] [address] 11/26/21
--- NOTE | 2025-07-25 20:37 | ED_ITS ---
HPI - General Adult General Date Seen: 07/25/25 Chief complaint: Unspecified Complaint, Adult Stated complaint: Fall Time Seen by Provider: 07/25/25 20:37 History of Present Illness HPI narrative: 59-year-old gentleman returning to the ER today for evaluation of fall. Per medical record he has a history of 3 previous strokes with residual left-sided weakness. Per medical record, other past history includes type 2 diabetes, anxiety, agoraphobia, depression, esophagitis, hypertension, chronic pain, needle phobia, vertigo, low back pain, sleep apnea Per medical record he was seen yesterday on 07/24 after he slipped and fell while getting bed. He had some discomfort in his left arm no other injury. Workup in the ER showed: White count of 10.3, hemoglobin 14.1, platelet count 344, Sodium 134, potassium 3.4, chloride 23, anion gap 12, bicarb 29, BUN 15, creatinine 0.9, glucose 321, calcium 8.4. Was treated with a L of normal saline. He is brought back to the ER today by EMS. He says his sister wanted him to be evaluated. Today is complaining of headache at 5/10. He denies any new fall, dizziness, chest pain, or shortness of breath. Patient is able to tell me that he got up out of bed today. As usual he needed to hold onto his dresser to get his balance. He let go of the dresser tonight to go to the kitchen to get a snack. When he let go he lost his balance. Did not lose consciousness initially recalls seeing the dresser rushing up toward his face as he fell. He struck the dresser with his nose and with his left eyebrow. He is having pain in that area as well as a generalized headache. He does not have any trouble with his vision. No laceration or bruising. He does not know how but he is happy did not break his glasses. He denies any other pain. No neck pain. No back pain. No pain in his arms or elbows or shoulders. No pain in his chest or ribs. No abdominal pain. No back pain. No pain in his hips or his lower extremities. He says he has not nauseous. No shortness of breath. No palpitations. No recent diarrhea. Urination has been normal His blood sugar typically runs in the range of about 200-240. He has not checked it today. Per paramedics it was elevated at 328. Additional history from his sister Rose.... He lives with her and their mother. He has been sick for about 3 or 4 days. He has just not been feeling well and has been eating and drinking well. No other definite complaints. No fever. No cough. No chest pain. No vomiting. Just not feeling well. They do note that he has been weaker than normal because he is not eating. His sisters been worried about his blood sugar because he is an insulin-dependent diabetic and he has not been eating is normal food. She also notes that he will had 1 fall yesterday evening which prompted his ER visit. He had another fall overnight last night when he tried to get out of bed. He had apparently laying on the floor for several hours before she finally found him and helped him get back to bed. His 3rd fall happened today when he struck his face on the dresser. Although he has been vomiting now 2 times here in the ER, he had not been vomiting at home. No known diarrhea. No known fever. Related Data Home Medications ?Medication ?Instructions ?Recorded ?Confirmed meclizine 25 mg tablet 25 mg PO TID PRN 05/06/25 rosuvastatin 20 mg tablet 20 mg PO DAILY 05/06/2503/12 Previous Rx's ?Medication ?Instructions ?Recorded alprazolam 0.5 mg tablet 0.5 mg PO QDAY PRN anxiety 3 0 days 12/23/24 #4 tabs hydrochlorothiazide 25 mg tablet 25 mg PO QAM #90 tabs 12/23/24 insulin glargine-yfgn 100 unit/mL 100 unit subcut QDAY #90 mL 12/26/24 (3 mL) subcutaneous pen (Semglee (insulin glargine-yfgn) Pen) insulin aspart U-100 100 unit/mL 60 unit (0.6 mL) subc ut BID #108 mL 01/27/25 (3 mL) subcutaneous pen pen needle, diabetic 32 gauge x #200 ea 03/03/25 (1st Tier Unifine Pentips) duloxetine 60 mg capsule,delayed 120 mg (2 x 60 mg) PO QDAY #180 04/28/25 release caps blood sugar diagnostic (Accu-Chek #100 ea 05/09/25 Guide test strips) blood-glucose sensor (Dexcom G7 #3 ea 05/09/25 Sensor device) blood-glucose,systems engineering manager,cont #1 ea 05/09/25 (Dexcom G7 Store Team Leader) Allergies Allergy/AdvReac Type Severity Reaction Status Date / Time lisinopril Allergy Severe Verified 07/25/25 22:34 simvastatin Allergy Verified 07/25/25 22:34 [facility] Medical History (Updated 07/25/25 @ 22:59 by Forest Virk MD) History of angioedema ?Z87.898 - Personal history of other specified conditions (ICD-10) Bradycardia ?R00.1 - Bradycardia, unspecified (ICD-10) Diabetic ketoacidosis ?E11.10 - Type 2 diabetes mellitus with ketoacidosis without coma (ICD-10) History of pancreatitis ?Z87.19 - Personal history of other diseases of the digestive system (ICD-10) Tobacco abuse ?Z72.0 - Tobacco use (ICD-10) History of cerebrovascular accident ?Z86.73 - Personal history of transient ischemic attack (TIA), and cerebral infarction without residual deficits (ICD-10) Surgical History (Updated 05/30/22 @ 16:18 by Blaine Phelps) History of tonsillectomy ?Z90.89 - Acquired absence of other organs (ICD-10) History of third molar tooth extraction ?K08.409 - Partial loss of teeth, unspecified cause, unspecified class (ICD- 10) History of endoscopy ?Z98.890 - Other specified postprocedural states (ICD-10) Family History (Updated 05/30/22 @ 16:22 by Blaine Phelps) Father Aneurysm Stroke Brother Heart disease Type 2 diabetes mellitus Mother Breast cancer Social History (Updated 01/23/23 @ 10:57 by Rani Monsalve APRN, ADOBE FLEX DEVELOPER) Narrative: The patient is , he lives with his mother and sister in [place], [place]. The patient is on total disability after having a stroke, leaving him with left-sided paralysis, and he uses a cane to walk. Nonsmoker, former smoker. Alcohol maybe once a month. No illicit drug use. The patient does not have any children. Exam Narrative: Exam Narrative: Primary Survey: A- patent. Speaking slightly slurred but that is apparently related to his prior stroke.. Phonation normal. No stridor. B- breathing easily. Lung sounds clear and equal. Oxygen saturation normal on room air C- no active bleeding. Blood pressure stable. Symmetric pulses and cap refill in 4 extremities. D- alert and oriented x3. GCS 15. No focal deficits. Constitutional: Appears well-developed and well-nourished. He is awake. He is a somewhat limited historian but answers questions appropriately when asked. As I am performing his exam he suddenly vomits (small volume whitish/creamy emesis. I rolled onto his left side as a recovery positions we does not aspirate. Vomiting is very short lived. Nurses and I arrival to get the vomit cleaned off him and get him changed out of his soiled shirt and into dry gown and get his face cleaned off. HENT: Head: Atraumatic. Although he says he hit his nose and face against the dresser there was no bruising, swelling, laceration. No depressed skull fracture, Raccoon Eyes, Reyes's sign, or hemotympanum. Face normal. TMs normal Nose: Nose normal. No epistaxis. Mouth/Throat: Oral mucosa is clear and moist. no trismus. Pharynx normal. Tonsils symmetric. No tonsillar enlargement, erythema, or exudate. Eyes: Conjunctivae normal. EOM normal. Pupils equal, round, and reactive to light. No scleral icterus. Neck: Normal range of motion. Neck supple. No tracheal deviation present. No posterior midline tenderness or step-off Cardiovascular: Normal rate, regular rhythm. No gallop. No friction rub. No murmur heard. Symmetric radial artery pulses Pulmonary/Chest: Effort normal. No stridor. No respiratory distress. No wheezes. No rales. No rhonchi . No tenderness. Abdominal: Soft. Bowel sounds normal. No distension. No mass. No tenderness. No rebound. No guarding. Musculoskeletal: No T or L-spine tenderness. RUE: Normal range of motion. No tenderness. No deformity LUE: Normal range of motion. No tenderness. No deformity RLE: Normal range of motion. No edema. No tenderness. No deformity LLE: Normal range of motion. No edema. No tenderness. No deformity Neurological: Alert and oriented to person, place, and time. I believe him to be at his baseline strength. He does have some chronic left upper extremity weakness apparently related to old strokes. Tongue protrudes slightly to the left which also is believed to be chronic. CN II-VII intact. No sensory deficit. GCS eye subscore is 4. GCS verbal subscore is 5. GCS motor subscore is 6. Normal coordination . Gait not assessed but he does have a cane with him and says he normally walks with a cane because of his left-sided weakness. Skin: Skin is warm and dry. No rash noted. No pallor. Normal capillary refill. Psychiatric: Normal mood. Polite Const: Vital Signs, click to edit/add: Vital Signs - 24 hr 07/25/25 20:20 07/25/25 20:21 07/25/25 20:22 Temperature Pulse Rate 97 94 94 Pulse Rate [Left P ulse Oximeter] Respiratory Rate Blood Pressure 194/117 H 177/91 H Blood Pressure [Ri ght Upper Arm] Pulse Oximetry 94 92 90 Oxygen Delivery Me thod Oxygen Flow Rate 07/25/25 20:23 07/25/25 20:30 07/25/25 20:32 Temperature 98.9 F Pulse Rate 92 94 Pulse Rate [Left P ulse Oximeter] 92 Respiratory Rate 20 Blood Pressure 176/111 H Blood Pressure [Ri ght Upper Arm] 194/117 H Pulse Oximetry 90 89 91 Oxygen Delivery Me thod Room Air Oxygen Flow Rate 07/25/25 20:45 07/25/25 20:49 07/25/25 20:58 Temperature Pulse Rate 91 92 100 Pulse Rate [Left P ulse Oximeter] Respiratory Rate Blood Pressure 164/138 H 205/123 H Blood Pressure [Ri ght Upper Arm] Pulse Oximetry 95 83 L 96 Oxygen Delivery Me thod Oxygen Flow Rate 07/25/25 21:00 07/25/25 21:02 07/25/25 21:44 Temperature Pulse Rate 103 H 102 H 93 Pulse Rate [Left P ulse Oximeter] Respiratory Rate 28 H 27 H 23 Blood Pressure 180/129 H Blood Pressure [Ri ght Upper Arm] Pulse Oximetry 97 95 89 Oxygen Delivery Me thod Oxygen Flow Rate 07/25/25 21:45 07/25/25 21:46 07/25/25 21:48 Temperature Pulse Rate 93 94 93 Pulse Rate [Left P ulse Oximeter] Respiratory Rate 18 25 H 24 Blood Pressure 171/100 H 162/97 H Blood Pressure [Ri ght Upper Arm] Pulse Oximetry 86 L 89 88 Oxygen Delivery Me thod Oxygen Flow Rate 07/25/25 22:26 07/25/25 22:30 07/25/25 22:32 Temperature Pulse Rate 92 90 90 Pulse Rate [Left P ulse Oximeter] Respiratory Rate 20 20 Blood Pressure 184/101 H Blood Pressure [Ri ght Upper Arm] Pulse Oximetry 89 89 87 L Oxygen Delivery Me thod Nasal Cannula Oxygen Flow Rate 2 07/25/25 22:43 07/25/25 22:45 07/25/25 22:47 Temperature Pulse Rate 90 90 91 Pulse Rate [Left P ulse Oximeter] Respiratory Rate 20 19 12 Blood Pressure 160/97 H 155/95 H Blood Pressure [Ri ght Upper Arm] Pulse Oximetry 87 L 87 L 94 Oxygen Delivery Me thod Oxygen Flow Rate Course Course ED Course: Recheck-patient was taken CT but had to be brought back to the ER because of vomiting. Nurses were finally able use IV started and give Zofran. Recheck-still nauseous and vomiting failed to get CT. Reglan ordered. Recheck-patient says he is feeling better. Sister at bedside additional history obtained. Recheck-patient sent to CT. At 10:48 p.m. nurses notified me that there was a CT scan result. I looked in the computer and discover the results of the intracranial hemorrhage did review the imaging from myself. There is a roughly 1 x 2 cm right basal gangliar intra from ankle hemorrhage. I do not see any intraventricular extension. I do not see any mass effect or effacement of the ventricles. We initially return to the patient's bedside to reassess and initiated blood pressure control and started the process for transfer. By 11:14 p.m. patient was accepted to the [facility] ER. Vital Signs Vital signs: Initial Vital Signs Pulse Rate 97 07/25/25 20:20 Blood Pressure 194/117 H 07/25/25 20:20 Blood Pressure Mean 142 H 07/25/25 20:20 Pulse Oximetry 94 07/25/25 20:20 Vital Signs Pulse Rate 97 07/25/25 20:20 Blood Pressure 194/117 H 07/25/25 20:20 Pulse Oximetry 94 07/25/25 20:20 Temperature 98.9 F 07/25/25 20:23 Pulse Rate 91 07/25/25 22:47 Respiratory Rate 12 07/25/25 22:47 Blood Pressure 155/95 H 07/25/25 22:47 Pulse Oximetry 94 07/25/25 22:47 Oxygen Delivery Method Nasal Cannula 07/25/25 22:30 Oxygen Flow Rate 2 07/25/25 22:30 Medications Administered Medications: Discontinued Medications Generic Name Dose Route Start Last Admin Trade Name Freq PRN Reason Stop Dose Admin Sodium Chloride 1,000 mls @ 1,000 mls/hr 07/25/25 21:00 07/25/25 23:04 0.9 % Sodium Chloride 1000 Ml IV 07/25/25 21:59 0 mls/hr .Q1H RADHA Infusion Metoclopramide HCl 10 mg/ 102 mls @ 306 mls/hr 07/25/25 21:33 07/25/25 21:51 Sodium Chloride IVPB 07/25/25 21:34 0 mls/hr ONCE ONE Infusion Sodium Chloride 1,000 mls @ 1,000 mls/hr 07/25/25 21:45 07/25/25 22:42 0.9 % Sodium Chloride 1000 Ml IV 07/25/25 22:44 1,000 mls/hr .Q1H RADHA Administration Ondansetron HCl 4 mg 07/25/25 20:57 07/25/25 20:57 Ondansetron 2 Mg/Ml Inj IVP 07/25/25 20:58 4 mg ONCE ONE Administration Ondansetron HCl 4 mg 07/25/25 21:18 07/25/25 22:00 Ondansetron Odt 4 Mg Tab PO 07/25/25 21:19 4 mg ONCE ONE Administration Medical Decision Making MDM Narrative Medical decision making narrative: 1. Neuro. Patient has been feeling unwell for about 3 or 4 days and had several falls at home. He had another fall today leading to facial trauma and has developed headache upon arrival and then several episodes of vomiting here in the ER. Had not had headache or vomiting at home prior to arrival. Head CT is obtained look for possible traumatic intracranial injury. Head CT scan shows evidence for a intraparenchymal bleed in the right basal ganglia. Based on its location I suspect this is probably a spontaneous hemorrhage and is likely the cause of the fall, rather than a result of the impact. Management for his intracranial hemorrhages as follows. His GCS is 15 but he is perhaps slightly drowsy. He still alert orient oriented near his baseline. Speech is mildly slurred any does have some chronic left wea lilia which is sister confirms are chronic. He was vomiting but that is controlled after Zofran and Reglan. We are require mental status monitoring and if he becomes somnolent will be intubated for airway protection. At this time he is clearly protecting his own airway. He is hypertensive with initial blood pressure about 194/117. After discovering the intracranial hemorrhage I ordered nicardipine drip with a goal to get his systolic blood pressure down to about 140 in order to minimize hematoma expansion. He is not on any anti-platelet agents or blood thinning medications . No reversal agents needed Will keep his head of the bed elevated at 30. 2. Pulmonary. Patient is noted to be occasionally hypoxic when he lays flat. It sounds like he does have sleep apnea and uses that at home for his breathing trouble. Suspect that is probably why had ice hypoxic. We did do a chest CT which is limited by motion but grossly negative. COVID/influenza/RSV is negative. 3. Endocrine. Does have insulin-dependent type 2 diabetes. Glucose is 359. Anion gap is normal at 12. Bicarb is normal at 28. Venous blood gas shows a pH is 7.4. No evidence for DKA. 4. Infectious disease. He is not febrile. White count mildly elevated 11.5. No clear criteria for sepsis. 5. Gi. Was vomiting several times here in the ER but denying abdominal pain. CT scan shows no definite acute intra-abdominal pathology. Question mildly hydropic gallbladder. No tenderness on exam. Suspect vomiting is actually due to his intracranial hemorrhage. 6. Disposition. This patient clearly requires hospitalization at the facility with Neuro ICU and neurosurgery capabilities given his intracranial hemorrhage. He has previous relationship [facility]. We were able to arrange an ER to ER transfer to [facility]. The patient was accepted to the ER through the [facility] transfer line and they did not require a ?doc to doc? discussion for transfer . Patient transferred emergently by ground EMS. Since there is not an immediate procedure pending, I do not think the additional expense and risk of air transport would be justified. Lab Data Labs: Lab Results 07/25/25 07/25/25 Range/Units 21:25 21:40 WBC 11.56 H (4.50-11.00) K/uL RBC 4.87 (4.30-5.90) m/uL Hgb 13.9 (13.5-17.5) gm/dL Hct 41.6 (37.0-53.0) % MCV 85 (80-100) fL MCH 29 (26-34) pg MCHC 33 (32-36) gm/dL RDW Coeff of Sean 13.5 (11.5-15.5) % Plt Count 351 (140-440) K/uL Neut % (Auto) 79.2 H (42.0-72.0) % Lymph % (Auto) 10.9 L (20-44) % [place] % (Auto) 8.0 (0.0-11.0) % Eos % (Auto) 1.2 (0.0-7.0) % Baso % (Auto) 0.5 (0.0-3.0) % Neut # (Auto) 9.20 H (1.7-7.0) K/uL Lymph # (Auto) 1.30 (0.90-2.90) K/uL [place] # (Auto) 0.90 (0.00-0.90) K/UL Eos # (Auto) 0.10 (0.00-0.50) K/uL Baso # (Auto) 0.10 (0.00-0.30) K/uL Abs Immat Gran (auto) 0.00 (0.00-0.30) K/uL Imm/Tot Granulo (auto) 0.2 % VBG pH 7.431 H (7.32-7.43) VBG pCO2 43 (40-50) mmHG VBG pO2 50.9 H (25-47) mmHG VBG HCO3 28 (21-28) mmol/L Sodium 133 L (135-149) mmol/L Potassium 3.6 (3.6-5.1) mmol/L Chloride 93 L (96-114) mmol/L Carbon Dioxide 28 (20-32) mmol/L Anion Gap 12 (7-15) mEq/L BUN 19 (7-30) mg/dL Creatinine 1.0 (0.5-1.5) mg/dL Estimated Creat Clear 74.36 Estimated GFR 87 ml/min Glucose 359 H* (60-115) mg/dL Lactate 2.1 H (0.5-1.9) mmol/L Calcium 8.5 (8.4-10.6) mg/dL Total Bilirubin 0.9 (0.1-1.5) mg/dL Direct Bilirubin 0.3 (0.0-0.5) mg/dL AST 35 (12-35) U/L ALT 29 (4-50) U/L Alkaline Phosphatase 111 (40-150) U/L Total Protein 8.1 (6.0-8.3) g/dL Albumin 4.3 (3.3-5.0) g/dL SARS-CoV-2 (PCR) Negative SARS-CoV-2 (Negative) Influenza Type A (PCR) Negative PCR FLU A (Negative) Influenza Type B (PCR) Negative PCR FLU B (Negative) RSV (PCR) Negative PCR RSV (Negative) Imaging Data CT C spine: Attestation: I have reviewed the pertinent imaging results. Radiologist's impression: IMPRESSION: 1. No sign of acute injury. 2. Multilevel degenerative spondylosis. CT scan - head: Attestation: I have reviewed the pertinent imaging results. Radiologist's impression: IMPRESSION: 1. Acute right basal ganglia hematoma measuring 2.0 x 1.2 cm with extension into the right lateral ventricle. 2. Atrophy and chronic microvascular disease appears advanced for the patient`s age. CT scan - abdomen: Attestation: I have reviewed the pertinent imaging results. Radiologist's impression: IMPRESSION: 1. No evidence of acute solid organ traumatic injury within the abdomen or pelvis. 2. Mildly hydropic gallbladder, without secondary signs of acute cholecystitis. CT scan - chest: Attestation: I have reviewed the pertinent imaging results. Radiologist's impression: IMPRESSION: 1. Significantly limited study due to extensive motion artifact. No definite large central pulmonary embolus is identified, however several segmental and subsegmental pulmonary arteries are inadequately evaluated. 2. No evidence of pulmonary infarct. No evidence of pulmonary contusion, laceration, or pneumothorax. Critical Care Time Critical Care Time Critical Care Time: Yes Attestation: The patient required my highest level preparedness to intervene emergently and I personally spent this critical care time directly and personally managing the patient. This critical care time included: Obtaining a history; Examining the patient; Pulse oximetry; Ordering and reviewing of studies; Arranging urgent treatment with development of a management plan; Evaluation of patients response to treatment; Frequent reassessment discussions with other providers. This critical care time was performed to assess and manage the high probability of imminent life-threatening deterioration that could result in multiorgan failure. It was exclusive of separate billable procedures and treating other patients and teaching time. Total Critical Care Time in Minutes: 30 Discharge Plan Discharge Clinical Impression: Intraparenchymal hemorrhage of brain, Hypertension, Vomiting, Falls, Acute hyperglycemia Patient Disposition: er [place] Prescriptions: No Action alprazolam 0.5 mg tablet 0.5 mg PO QDAY PRN (Reason: anxiety) 30 Days Qty: 4 5RF hydrochlorothiazide 25 mg tablet 25 mg PO QAM Qty: 90 3RF meclizine 25 mg tablet 25 mg PO TID PRN rosuvastatin 20 mg tablet 20 mg PO DAILY insulin glargine-yfgn [Semglee(insulin glarg-yfgn)Pen] 100 unit/mL (3 mL) insulin pen 100 unit subcut QDAY Qty: 90 3RF insulin aspart U-100 100 unit/mL (3 mL) insulin pen 60 unit subcut BID Qty: 108 3RF (DME) pen needle, diabetic [1st Tier Unifine Pentips] 32 gauge x 5/32 needle See Rx Instructions .Route Qty: 200 6RF Rx Instructions: qid duloxetine 60 mg capsule,delayed release(DR/EC) 120 mg PO QDAY Qty: 180 3RF (DME) Accu-Chek Guide test strips Strip See Rx Instructions .Route Qty: 100 6RF Rx Instructions: Test blood sugar 4 times daily (DME) Dexcom G7 Sensor Device See Rx Instructions .Route Qty: 3 3RF Rx Instructions: As directed (DME) Dexcom G7 Store Team Leader Misc See Rx Instructions .Route Qty: 1 0RF Rx Instructions: As directed Stand Alone Forms: [facility] Info Instructions Procedures ABG Interpretation ABG Results: 07/25/25 21:25 VBG pH 7.431 H VBG pCO2 43 VBG pO2 50.9 H VBG HCO3 28
[2025-07-25] MEDS: ONDANSETRON 2 MG/ML inj 4 MG IVP (20:57)
--- NOTE | 2025-07-25 20:57 | CRLHL7_ITS ---
For Patients: As a result of the Century Cures Act, medical imaging exams and procedure reports are released immediately into your electronic medical record. You may view this report before your referring provider. If you have questions, please contact your health care provider. INDICATION: Trauma, fall. TECHNIQUE: CT cervical spine without contrast. COMPARISON: None. FINDINGS: Vertebrae: Alignment is normal. There are no fractures or suspicious bony lesions. Discs and facet joints: There are degenerative disc changes most severe at C5-6 and C6-7. There are mild multilevel degenerative changes in the facets. Extraspinal findings: Paraspinous soft tissues are unremarkable. IMPRESSION: 1. No sign of acute injury. 2. Multilevel degenerative spondylosis. Please note that all CT scans at this facility use dose modulation, iterative reconstruction, and/or weight-based dosing when appropriate to reduce radiation dose to as low as reasonably achievable. Dictated by Jose Cruz Jackson MD @ 07/25/2025 10:43:25 PM (Electronically Signed)
--- NOTE | 2025-07-25 20:57 | CRLHL7_ITS ---
For Patients: As a result of the Century Cures Act, medical imaging exams and procedure reports are released immediately into your electronic medical record. You may view this report before your referring provider. If you have questions, please contact your health care provider. INDICATION: Trauma, fall. Vomiting. TECHNIQUE: Head CT without contrast. COMPARISON: None. FINDINGS: CSF spaces: Within normal limits for age. Brain parenchyma and extra-axial spaces: Acute hematoma measuring 3.0 x 1.2 cm is in the right basal ganglia with hemorrhagic extension into the right lateral ventricle. Mild mass effect on the right ventricle. No significant midline shift. Skull base and calvarium: The visualized paranasal sinuses and mastoid air cells demonstrate no acute or significant findings. The visualized orbits are grossly unremarkable. No skull fractures. IMPRESSION: 1. Acute right basal ganglia hematoma measuring 2.0 x 1.2 cm with extension into the right lateral ventricle. 2. Atrophy and chronic microvascular disease appears advanced for the patient`s age. Please note that all CT scans at this facility use dose modulation, iterative reconstruction, and/or weight-based dosing when appropriate to reduce radiation dose to as low as reasonably achievable. Dictated by Jose Cruz Jackson MD @ 07/25/2025 10:39:08 PM (Electronically Signed)
--- NOTE | 2025-07-25 21:20 | CRLHL7_ITS ---
For Patients: As a result of the Century Cures Act, medical imaging exams and procedure reports are released immediately into your electronic medical record. You may view this report before your referring provider. If you have questions, please contact your health care provider. INDICATION: Trauma. Fall. Hypoxia. TECHNIQUE: CT chest PE was acquired with 95 cc Isovue 370 IV contrast. COMPARISON: CT chest dated 02/13/2025. FINDINGS: Heart and vasculature: No cardiomegaly, no pericardial effusion. Significantly limited evaluation of the pulmonary artery secondary to extensive motion artifact. No definite filling defects identified within the main and lobar pulmonary arteries. However, several segmental pulmonary arteries and all subsegmental pulmonary arteries are inadequately evaluated. Atherosclerotic coronary artery calcifications. Pericardial lipomatosis. Lungs and pleura: Diffuse central ground-glass attenuation, likely attributable to motion artifact. No large pulmonary infarct. No evidence of pulmonary contusion, laceration, or pneumothorax. Thyroid and lower neck: Subcentimeter thyroid nodules are noted. Mediastinum/michael: No lymphadenopathy. Chest wall: No axillary lymphadenopathy. Bilateral gynecomastia. Upper abdomen: See separate report of same day CT abdomen/pelvis. Bones: Multilevel degenerative changes of the spine. IMPRESSION: 1. Significantly limited study due to extensive motion artifact. No definite large central pulmonary embolus is identified, however several segmental and subsegmental pulmonary arteries are inadequately evaluated. 2. No evidence of pulmonary infarct. No evidence of pulmonary contusion, laceration, or pneumothorax. Please note that all CT scans at this facility use dose modulation, iterative reconstruction, and/or weight-based dosing when appropriate to reduce radiation dose to as low as reasonably achievable. Dictated by Kali Benitez MD @ 07/25/2025 11:10:33 PM (Electronically Signed)
--- NOTE | 2025-07-25 21:20 | CRLHL7_ITS ---
For Patients: As a result of the Century Cures Act, medical imaging exams and procedure reports are released immediately into your electronic medical record. You may view this report before your referring provider. If you have questions, please contact your health care provider. INDICATION: Trauma. Fall. Vomiting. TECHNIQUE: CT abdomen and pelvis acquired with 95 mL Isovue 370 IV contrast. COMPARISON: None. FINDINGS: Liver: No suspicious focal hepatic lesion. Gallbladder and bile ducts: Mildly hydropic gallbladder, without calcified gallstone or significant pericholecystic inflammation. Pancreas: Unremarkable. Spleen: Unremarkable. Adrenal glands: Unremarkable. Kidneys: Kidneys enhance symmetrically, without hydronephrosis. 1.2 cm right renal cyst noted. Retroperitoneum: No lymphadenopathy. Bowel and mesentery: Bowel is not obstructed. No significant ascites. Scattered colonic diverticulosis, without evidence of acute diverticulitis. Normal appendix. Prominent duodenum diverticulum. No large mesenteric hematoma. Bladder: Unremarkable for degree of distention. Reproductive organs: Mild prostatomegaly. Pelvic lymph nodes: No lymphadenopathy. Vessels: Atherosclerotic calcifications. Abdominal wall: No acute abdominal wall abnormality. Bones: Multilevel degenerative changes of the spine. Bones are osteopenic. Lower chest: See separate report of same day CT chest. IMPRESSION: 1. No evidence of acute solid organ traumatic injury within the abdomen or pelvis. 2. Mildly hydropic gallbladder, without secondary signs of acute cholecystitis. Please note that all CT scans at this facility use dose modulation, iterative reconstruction, and/or weight-based dosing when appropriate to reduce radiation dose to as low as reasonably achievable. Dictated by Kali Benitez MD @ 07/25/2025 10:53:56 PM (Electronically Signed)
[2025-07-25] MEDS: METOCLOPRAMIDE HCL 10 MG in 0.9 % SODIUM CHLORIDE 100 ml 100 ML 306 MG IVPB (21:35)
[2025-07-25 21:41] LABS: HCO3 VBG 28 mmol/L (21-28); Lactate* 2.1 mmol/L (0.5-1.9); PCO2 VBG 43 mmHG (40-50); PO2 VBG 50.9 mmHG (25-47); pH VBG 7.431 (7.32-7.43)
[2025-07-25 21:43] LABS: Hematocrit* 41.6 % (37.0-53.0); Hemoglobin* 13.9 gm/dL (13.5-17.5); Immature Granulocytes Pct Auto 0.2 %; Mean Corpuscular HGB Conc 33 gm/dL (32-36); Mean Corpuscular Hemoglobin 29 pg (26-34); Mean Corpuscular Volume 85 fL (80-100); RDW Coefficient of Variation % 13.5 % (11.5-15.5); Red Blood Count* 4.87 m/uL (4.30-5.90); White Blood Count* 11.56 K/uL (4.50-11.00)
[2025-07-25 21:50] LABS: Immature Granulocytes Abs Auto 0.00 K/uL (0.00-0.30); Lymphocytes Absolute Auto 1.30 K/uL (0.90-2.90); Slide Review Reflex No
[2025-07-25 21:54] LABS: Chloride* 93 mmol/L (96-114); Potassium* 3.6 mmol/L (3.6-5.1); Sodium* 133 mmol/L (135-149)
[2025-07-25 21:57] LABS: Blood Urea Nitrogen* 19 mg/dL (7-30); Carbon Dioxide* 28 mmol/L (20-32); Creatinine* 1.0 mg/dL (0.5-1.5); Est. Creatinine Clearance* 74.36; Estimated Glomerular Filt Rate 87 ml/min
[2025-07-25 21:58] LABS: Anion Gap 12 mEq/L (7-15); Calcium* 8.5 mg/dL (8.4-10.6)
[2025-07-25 21:59] LABS: Glucose* 359 mg/dL (60-115)
[2025-07-25] MEDS: ONDANSETRON ODT 4 MG TAB PO (22:00)
[2025-07-25 22:12] LABS: Albumin* 4.3 g/dL (3.3-5.0)
[2025-07-25 22:15] LABS: Alanine Aminotransferase* 29 U/L (4-50); Alkaline Phosphatase* 111 U/L (40-150); Aspartate Amino Transferase* 35 U/L (12-35); Bilirubin Direct* 0.3 mg/dL (0.0-0.5); Bilirubin Total* 0.9 mg/dL (0.1-1.5); Total Protein* 8.1 g/dL (6.0-8.3)
[2025-07-25 22:23] LABS: PCR FLU A Negative PCR FLU A (Negative); PCR FLU B Negative PCR FLU B (Negative); PCR RSV Negative PCR RSV (Negative); SARS PCR* Negative SARS-CoV-2 (Negative)
[2025-07-25] MEDS: NICARDIPINE INFUSION 0.1 mg/ml 20 MG/200 ML BAG 50 MG IV (23:08)
--- OUTSIDE RECORDS SUMMARY | 2025-07-25 23:09 | XMS_ITS | Encounter Summary ---
Author Organization [facility] Address [address] [place] [address] Care Team Providers Care Criminal Investigator Name Role Phone Elsewhere, Pcp Primary Care Provider Unavailabl e Encounter Details Date Type Department Care Team (Late st Contact Info) Description 07/25/2025 11:09 PM OCCUPATIONAL HEALTH MANAGER Emergency [facility] Emergency Department [address] [place] [phone] Social History Tobacco Use Types Packs/Day Years Used Date Smoking Tobacco: Every Day [facility] Utilities Answer Date Recorded In the past 12 months has e electric, gas, oil, or water company threatened to shut off services in your [...] your living situation today? I have a [facility] place to live 09/24/2024 Sex and Gender Information Value Date Recorded Sex Assigned at Not on file Legal Sex Male 1:58 PM CDT Gender Identity Not on file Sexual Orientation Not on file documented as of this encounter Plan of Treatment Not on file documented as of this encounter Visit Diagnoses Not on filedocumented in this encounter Care Teams Criminal Investigator Relationship Specialty Start Date End Date Elsewhere, Pcp PCP - General Family Medicine 08/14/19 documented as of this encounter
== END 2025-07-25 23:56 | disposition short-term general hospital (02) ==
PROVIDERS: Emergency Provider Emergency Medicine; PCP Nurse Practitioner Family
DX: I61.9 Nontraumatic intracerebral hemorrhage, unspecified (principal); W06.XXXA Fall from bed, initial encounter
CPT/HCPCS: 36415; 70450; 71275; 72125; 74177; 80048; 80076; 82803; 83605; 84484; 85025; 87040; 87631; 93005; 96365; 96375; 99285; 99291; A9270; J2404; J2405; J2765; J7030; Q9967

== ENCOUNTER 2025-07-25 23:35 | Outpatient (CLI) | payer MEDICARE, SELFPAY | END 2025-07-25 23:36 | disposition home or self-care (01) | LOC: AMB 07-30 18:20 | PROVIDERS: PCP Nurse Practitioner Family; Visit Provider Emergency Medicine | DX: I61.9 Nontraumatic intracerebral hemorrhage, unspecified (principal); I10 Essential (primary) hypertension; R11.10 Vomiting, unspecified; R73.9 Hyperglycemia, unspecified | CPT/HCPCS: A0425; A0434 ==